=== PATIENT | male | born 1955 | race Caucasian/White ===

== ENCOUNTER → 2018-01-18 08:29 | Outpatient (CLI) | payer OTHER, SELFPAY ==
[2018-01-18 10:33] LABS: Anion Gap 8 (5-15); BUN 17 mg/dL (7-18); BUN/Creat Ratio 15.2 RATIO (10-20); Calcium,Total 8.8 mg/dL (8.5-10.1); Chloride 106 mmol/L (98-107); Cholesterol 205 mg/dL (200); Creatinine, Serum 1.12 mg/dL (0.70-1.30); EST Glomerular Filtration Rate 70 mL/min (>60); Est Glom Filt Rate - Afr Amer 85 mL/min (>60); Glucose 104 mg/dL (74-106); High Density Lipoprotein 63 mg/dL; Sodium Level 140 mmol/L (136-145); Triglycerides 64 mg/dL; Very Low Density Lipoprotein 13 mg/dL (5-40)
== END ==
PROVIDERS: Family Provider Family Medicine; PCP Family Medicine; Visit Provider Family Medicine
DX: Z00.00 Encounter for general adult medical examination without abnormal findings (principal)
CPT/HCPCS: 36415; 80048; 80061

== ENCOUNTER → 2018-01-20 08:08 | Outpatient (CLI) | payer OTHER, SELFPAY ==
[2018-01-20 10:39] LABS: PSA,Total - Annual Screen 1.42 ng/mL (0.00-4.00)
== END ==
PROVIDERS: Family Provider Family Medicine; PCP Family Medicine; Visit Provider Family Medicine
DX: Z00.00 Encounter for general adult medical examination without abnormal findings (principal)
CPT/HCPCS: 36415; 84153; G0103

== ENCOUNTER 2018-08-12 19:09 | Observation (INO) | payer OTHER, SELFPAY ==
[2018-08-12 19:10] VITALS: BP 166/86; PULSE 95; RESP 14; TEMP 36.7; O2SAT 97; BMI 27.6
--- NOTE | 2018-08-12 19:12 | ED.RN ---
NO OLD EKG'S IN MUSE
--- NOTE | 2018-08-12 19:32 | RAD_ITS ---
STUDY: X-RAY CHEST REASON FOR EXAM: Male, 62 years old. Chest pain. TECHNIQUE: Portable chest. COMPARISON: 07/30/2017. FINDINGS: The lungs are clear and expanded. There is no demonstrated pleural abnormality. Normal size heart. Normal mediastinum and colleen. Normal visualized pulmonary arteries. Normal visualized aortic arch and descending thoracic aorta. Normal visualized thoracic spine. Normal visualized ribs, clavicles, and shoulders. There is no demonstrated abnormality of the visualized soft tissue structures of the upper abdomen. RAD/Chest 1 View (Portable) IMPRESSION: Normal x-ray examination of the chest. Electronically Signed: Charlee Ellis MD at 19:49 EDT Tel , Service support ,
--- NOTE | 2018-08-12 19:32 | EKG12_ITS ---
Test Reason : CP Blood Pressure : / mmHG Vent. Rate : 089 BPM Atrial Rate : 089 BPM P-R Int : 166 ms QRS Dur : 098 ms QT Int : 360 ms P-R-T Axes : 053 014 041 degrees QTc Int : 438 ms Normal sinus rhythm Normal ECG Confirmed by CRISELDA JOHNSON, CHANTELLE ([id number]), commissioning editor YOANDY TONEY ([id number]) on 08/16/2018 3:06:35 PM Referred By: NEEL HAJI Confirmed By:CHANTELLE ABURTO MD
[2018-08-12] MEDS: Aspirin 81 MG TAB.CHEW 324 MG PO (19:46)
[2018-08-12 19:50] LABS: Absolute Lymphocyte Count 2.52 X10^3/ul (0.83-4.51); Absolute Neutrophil Count 6.1 X10^3/uL (2.0-7.7); Basophil# 0.02 X10^3/uL; Basophil% 0.2 % (0-1); Eosinophil# 0.13 X10^3/uL; Eosinophils% 1.3 % (0-5); Hematocrit 46.6 % (40-54); Hemoglobin 15.7 g/dl (13.0-16.5); Lymphocyte # 2.52 X10^3/ul (4.0); Mean Corp Hgb Conc 33.7 g/gl (32-36); Mean Corpuscular Hgb 31.2 pg (27.0-32.0); Mean Corpuscular Volume 92.6 fL (80-94); Mean Platelet Vol. 10.5 fl (6.2-12.0); Monocyte# 1.29 X10^3/uL; Monocyte% 12.8 % (0-10); Neutrophil # 6.12 X10^3/uL (2.7-7.7); Neutrophil % 60.6 % (47-70); Platelet Count 203 K/mm3 (150-450); RBC Distribution Width CV 12.7 % (11.6-14.6); RBC Distribution Width SD 42.5 fl (35.1-43.9); Red Blood Count 5.03 M/mm3 (4.6-6.2); White Blood Count 10.1 K/mm3 (4.4-11.0)
[2018-08-12 19:58] LABS: Anion Gap 8 (5-15); BUN 19 mg/dL (7-18); BUN/Creat Ratio 15.1 RATIO (10-20); Calcium,Total 9.2 mg/dL (8.5-10.1); Chloride 106 mmol/L (98-107); Creatinine, Serum 1.26 mg/dL (0.70-1.30); EST Glomerular Filtration Rate 61 mL/min (>60); Est Glom Filt Rate - Afr Amer 74 mL/min (>60); Estimated Creatinine Clearance 63.91 ml/min; Glucose 113 mg/dL (74-106); Potassium 3.5 mmol/L (3.5-5.1); Sodium Level 139 mmol/L (136-145)
[2018-08-12 20:06] LABS: POSITIVE COUNT NO; POSITIVE DIFFERENTIAL NO; POSITIVE MORPHOLOGY NO
[2018-08-12 20:10] VITALS: BP 147/79; PULSE 88; RESP 16; O2SAT 97
[2018-08-12 21:00] VITALS: BP 147/82; PULSE 86; RESP 16; O2SAT 96
--- NOTE | 2018-08-12 21:01 | PCM.HP.STD ---
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 His chest pain started a few hours before his admission. Patient reported that he was standing when his chest pain occurred. He describes chest pain as 4-5 on a scale of 1-10. He describes chest pain as a tightness on his chest. His chest pain started after 20 to 30 minutes of eating. Associated with his symptoms is profuse diaphoresis, lightheadedness and shortness of breath. Patient reported that 5 days ago he had a diarrhea and abdominal upset which has since resolved. He reported that 2 to 3 days ago he had some heartburn which resolved in 10 minutes after he took Tums. Significantly, many years ago he had a stress test because of chest pain. Patient reports that his maternal grandfather had a heart attack. Past Medical History Past Medical History (Chronic Problems): Chronic Problems HTN (hypertension) (Chronic) GERD (gastroesophageal reflux disease) (Chronic) Allergies No Known Allergies Allergy (Verified 08/12/18 19:12) Home Medications: Ambulatory Orders Medication Instructions Recorded Apixaban [Eliquis] 2.5 mg PO BID 08/12/18 Lisinopril [Zestril] 10 mg PO DAILY 08/12/18 Surgical History: no surgical history Psychiatric History: No pertinent psych hx Lives: Spouse/ Significant Other Smoking Status: Current some day smoker - Smokes cigar; rarely. Alcohol: Occasional - *Family History Maternal History Items: Heart Disease Review of Systems Constitutional: Denies: Chills, Fever, Weight Change Eyes: Denies: Blurred vision, Pain HEENT: Denies: Head Aches, Sinus Congestion, Sinus Drainage Cardiovascular: Reports: Chest Pain Respiratory: Reports: Shortness of Breath Gastrointestinal: Denies: Abdominal Pain, Nausea, Vomiting Genitourinary: Denies: Dysuria Musculoskeletal: Denies: Joint Pain, Joint Tenderness Skin: Denies: Rash, Wounds Neurological: Denies: Numbness, Tingling, Focal weakness Psychiatric: Denies: Anxiety, Depression, Homicidal Ideations, Suicidal Ideations Hematologic/ Lymphatic: Denies: Easy Bruising, Easy Bleeding VTE Information - Inpt Only VTE Present on Admission: Yes VTE Mechan Device Prophylaxis: None VTE Pharm Prophylaxis ordered?: No Reason prophylaxis not ordered:: Treatment Not Indicated - On Eliquis Patient Problems: Active and Suspected Problems Chest pain (Acute) - Physical Exam General: Alert, Oriented x3, Cooperative HEENT: Atraumatic, PERRLA, EOMI, Normocephalic Neck: Supple, No JVD, Negative Carotid Bruits Lungs: Clear to auscultation, Normal air movement Cardiovascular: Regular rate, No murmurs Abdomen: Bowel Sounds Present, Soft, Non Tender Extremities: No edema, Capillary Refill Less than 3 Seconds Skin: No rashes, No breakdown Musculoskeletal: No Tenderness to Palpation of Joints or Extremities Neurological: Cranial nerves II-XII grossly intact Psych/Mental Status: Normal Affect, Appropriate Vital Signs Temp Pulse Resp BP Pulse Ox 98.0 F 88 16 147/79 H 97 08/12/18 19:10 08/12/18 20:10 08/12/18 20:10 08/12/18 20:10 08/12/18 20:10 Oxygen Flow Rate (L/min) 2 Oxygen Delivery Method Nasal Cannula Weight: 89.8 kg Body Mass Index (BMI) 27.6 Laboratory Tests Past 24 Hrs 08/12/18 08/12/18 19:15 19:15 WBC 10.1 RBC 5.03 Hgb 15.7 Hct 46.6 MCV 92.6 MCH 31.2 MCHC 33.7 RDW 12.7 RDW Differential 42.5 Plt Count 203 MPV 10.5 Immature Gran % (Auto) 0.100 Neut % (Auto) 60.6 Lymph % (Auto) 25.0 [place] % (Auto) 12.8 H Eos % (Auto) 1.3 Baso % (Auto) 0.2 Absolute Neuts (auto) 6.1 Absolute Lymphs (auto) 2.52 Total Counted Not Reportable Sodium 139 Potassium 3.5 Chloride 106 Carbon Dioxide 25.0 Anion Gap 8 BUN 19 H Creatinine 1.26 Estim Creat Clear Calc 63.91 Est GFR (MDRD) Af Amer 74 Est GFR (MDRD) Non-Af 61 BUN/Creatinine Ratio 15.1 Glucose 113 H Calcium 9.2 Troponin I < 0.015 Assessment/Plan All Active Problems Chest pain (Acute) The patient is a 62 year old M with a significant history of GERD, hypertension, and 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 Chest pain Admit to a monitored bed on PCU CXR independently reviewed was unremarkable. EKG independently reviewed confirms sinus rhythm with no T-wave abnormalities. Patient received aspirin 324 mg at emergency department. ASA 81 mg p.o. daily Lipitor 80 mg ?1. Fasting lipids in a.m. SL NTG 0.4 mg prn as needed for chest pain Morphine and antiemetics as needed Serial cardiac enzymes Stat EKG as needed for chest pain Treadmill stress test with nuclear imaging if the cardiac enzymes are negative Hypertension Blood pressure not within goal at the time of admission Lisinopril continued Hydralazine as needed. Trend BMP. GERD Tums as needed History of DVT Patient reported unprovoked DVT in bilateral legs at different times. He reports that his father also had DVT. He reports that his son has DVT and factor V Leiden deficiency. Eliquis continued. DVT prophylaxis Not indicated Eliquis continued. Code Visit OBSV E&M: 66928 Initial observation care L3
--- NOTE | 2018-08-12 21:05 | ED.VISSUMM ---
- ER Visit Summary Date of Service: 08/12/18 Chief Complaint: Midsternal left chest tightness with diaphoresis and dyspnea. History of Present Illness: The patient is a 62 M who has history of GERD and hypertension [place]. He walked approximately 1/2 mile before experiencing midsternal left sided chest tightness with diaphoresis and dyspnea. Discomfort lasted for approximately 1 hour. He had a stress test many years ago. Maternal grandfather history of coronary disease. He has history of on provoked DVT ?2 and on Eliquis for the past 4 years. He denies any pleuritic chest pain. He states yesterday after walking half mile he got heartburn which was alleviated by antacids. He does have history of GERD. He denies fever, chills night sweats. He denies any ocular, visual or auditory symptoms. He presently is pain-free. He denies dyspnea, dyspnea on exertion or cough. He denies hematemesis, melena hematochezia. He denies dysuria, frequency, urgency hematuria. He denies any leg pain, swelling or discoloration. He has no symptoms of claudication. Physical Examination: Vital signs are marked for an elevated blood pressure 166/86. HEENT exam is unremarkable. Lungs are clear to auscultation with good air bilaterally. Heart is regular without murmur, gallop or rub. Abdomen is soft nontender with a negative Wilkins sign. There is no asymmetry, swelling, discoloration, leg vein distention, palpable cords or tenderness along the distribution of the deep venous system. Neuro exam is nonfocal. Test Results: EKG normal sinus rhythm 89. [place] interval and QRS duration and QT interval and axis normal. Chest x-ray reveals no acute pathology. Cardiac silhouette normal. Mediastinum normal. Osseous structures normal. No effusion. CBC, BMP and troponin are normal. Emergency Department Course and Treatment: Chest pain order set was initiated to evaluate for cardiac versus pulmonary versus GI etiology. He received aspirin in the department. Treatment Plan: PCU 23 observation for serial enzymes and provocative testing Disposition: PCU 23 hour observation Impression: Exertional chest tightness with diaphoresis This note was generated with [employer] dictation software. It may contain incorrect words, spelling, and punctuation that were not noted in review of the chart prior to signing ED Disposition - Plan for ED Patient: Chief Complaint: Chest Pain Referrals: Ramon Jackson MD [Primary Care Provider] -
--- NOTE | 2018-08-12 21:12 | ED.DCSUM_ITS ---
- ER Visit Summary Date of Service: 08/12/18 Chief Complaint: Midsternal left chest tightness with diaphoresis and dyspnea. History of Present Illness: The patient is a 62 M who has history of GERD and hypertension [place] He walked approximately 1/2 mile before experiencing midsternal left sided chest tightness with diaphoresis and dyspnea. Discomfort lasted for approximately 1 hour. He had a stress test many years ago. Maternal grandfather history of coronary disease. He has history of on provoked DVT ?2 and on Eliquis for the past 4 years. He denies any pleuritic chest pain. He states yesterday after walking half mile he got heartburn which was alleviated by antacids. He does have history of GERD. He denies fever, chills night sweats. He denies any ocular, visual or auditory symptoms. He presently is pain-free. He denies dyspnea, dyspnea on exertion or cough. He denies hematemesis, melena hematochezia. He denies dysuria, frequency, urgency hematuria. He denies any leg pain, swelling or discoloration. He has no symptoms of claudication. Physical Examination: Vital signs are marked for an elevated blood pressure 166/ 86. HEENT exam is unremarkable. Lungs are clear to auscultation with good air bilaterally. Heart is regular without murmur, gallop or rub. Abdomen is soft nontender with a negative Wilkins sign. There is no asymmetry, swelling, discoloration, leg vein distention, palpable cords or tenderness along the distribution of the deep venous system. Neuro exam is nonfocal. Test Results: EKG normal sinus rhythm 89. [place] interval and QRS duration and QT interval and axis normal. Chest x-ray reveals no acute pathology. Cardiac silhouette normal. Mediastinum normal. Osseous structures normal. No effusion. CBC, BMP and troponin are normal. Emergency Department Course and Treatment: Chest pain order set was initiated to evaluate for cardiac versus pulmonary versus GI etiology. He received aspirin in the department. Treatment Plan: PCU 23 observation for serial enzymes and provocative testing Disposition: PCU 23 hour observation Impression: Exertional chest tightness with diaphoresis This note was generated with [employer] dictation software. It may contain incorrect words, spelling, and punctuation that were not noted in review of the chart prior to signing ED Disposition - Plan for ED Patient: Chief Complaint: Chest Pain Referrals: Ramon Jackson MD [Primary Care Provider] -
--- NOTE | 2018-08-12 21:51 | NURSING ---
Called ED exchange trouble shooter, Ryan at this time confirm Pt okay to come to PCU.
[2018-08-12 22:16] VITALS: BMI 27.3
--- NOTE | 2018-08-12 22:16 | EKG12_ITS ---
Test Reason : ADMIT Blood Pressure : / mmHG Vent. Rate : 076 BPM Atrial Rate : 076 BPM P-R Int : 170 ms QRS Dur : 108 ms QT Int : 388 ms P-R-T Axes : 057 016 047 degrees QTc Int : 436 ms Normal sinus rhythm Normal ECG No previous ECGs available Confirmed by CRISELDA JOHNSON, CHANTELLE ([id number]), desk editor YOANDY TONEY ([id number]) on 08/16/2018 3:56:02 PM Referred By: PAPI Confirmed By:CHANTELLE ABURTO MD
[2018-08-12 22:25] VITALS: PULSE 78
[2018-08-12 22:59] VITALS: BP 134/76
[2018-08-12 23:00] VITALS: BP 124/69; PULSE 69; RESP 16; TEMP 36.8; O2SAT 98
[2018-08-12] MEDS: Atorvastatin Calcium 80 MG Tablet PO (23:04)
[2018-08-12 23:06] VITALS: BMI 27.3
[2018-08-13 01:40] LABS: Absolute Lymphocyte Count 1.61 X10^3/ul (0.83-4.51); Absolute Neutrophil Count 5.6 X10^3/uL (2.0-7.7); Basophil# 0.03 X10^3/uL; Basophil% 0.3 % (0-1); Eosinophil# 0.13 X10^3/uL; Eosinophils% 1.5 % (0-5); Hematocrit 43.3 % (40-54); Hemoglobin 14.5 g/dl (13.0-16.5); Lymphocyte # 1.61 X10^3/ul (4.0); Lymphocyte % 18.7 % (19-41); Mean Corp Hgb Conc 33.5 g/gl (32-36); Mean Corpuscular Hgb 30.9 pg (27.0-32.0); Mean Corpuscular Volume 92.1 fL (80-94); Mean Platelet Vol. 10.2 fl (6.2-12.0); Monocyte# 1.18 X10^3/uL; Monocyte% 13.7 % (0-10); Neutrophil # 5.64 X10^3/uL (2.7-7.7); Neutrophil % 65.7 % (47-70); Platelet Count 207 K/mm3 (150-450); RBC Distribution Width CV 12.5 % (11.6-14.6); RBC Distribution Width SD 41.5 fl (35.1-43.9); White Blood Count 8.6 K/mm3 (4.4-11.0)
[2018-08-13 01:44] LABS: POSITIVE COUNT NO; POSITIVE DIFFERENTIAL NO; POSITIVE MORPHOLOGY NO
[2018-08-13 01:59] LABS: International Normalized Ratio 1.1; Prothrombin Time (Protime)PT. 14.2 SECONDS (11.7-14.9)
[2018-08-13 02:00] LABS: Partial Thromboplast Time 28.6 Seconds (24.1-36.2)
[2018-08-13 02:34] LABS: Anion Gap 8 (5-15); BUN 17 mg/dL (7-18); BUN/Creat Ratio 15.7 RATIO (10-20); Calcium,Total 8.7 mg/dL (8.5-10.1); Chloride 108 mmol/L (98-107); Cholesterol 166 mg/dL (200); Creatinine, Serum 1.08 mg/dL (0.70-1.30); EST Glomerular Filtration Rate 73 mL/min (>60); Est Glom Filt Rate - Afr Amer 89 mL/min (>60); Estimated Creatinine Clearance 74.56 ml/min; Glucose 106 mg/dL (74-106); High Density Lipoprotein 63 mg/dL; Potassium 3.7 mmol/L (3.5-5.1); Sodium Level 141 mmol/L (136-145); Triglycerides 63 mg/dL; Very Low Density Lipoprotein 13 mg/dL (5-40)
[2018-08-13 03:04] VITALS: PULSE 75
--- NOTE | 2018-08-13 04:00 | EKG12_ITS ---
Test Reason : AM Blood Pressure : / mmHG Vent. Rate : 079 BPM Atrial Rate : 079 BPM P-R Int : 174 ms QRS Dur : 100 ms QT Int : 396 ms P-R-T Axes : 044 -02 032 degrees QTc Int : 454 ms Normal sinus rhythm Normal ECG When compared with ECG of 12-AUG-2018 22:14, MANUAL COMPARISON REQUIRED, DATA IS UNCONFIRMED Confirmed by CRISELDA JOHNSON, CHANTELLE ([id number]), senior editor YOANDY TONEY ([id number]) on 08/16/2018 3:55:26 PM Referred By: HOSP Confirmed By:CHANTELLE ABURTO MD
[2018-08-13 05:00] VITALS: BP 146/84; PULSE 89; RESP 20; TEMP 36.8; O2SAT 96
--- NOTE | 2018-08-13 05:34 | NURSING ---
Pt. refusing injection for stress test at this time. Pt. wants to make sure his insurance will cover stress test and wonders if he needs precertification for test. This nurse will try to contact his insurance company to get information.
[2018-08-13 07:07] VITALS: PULSE 80
[2018-08-13 08:16] VITALS: O2SAT 96
[2018-08-13 08:28] VITALS: BP 150/80; PULSE 95; RESP 18; TEMP 36.8; O2SAT 95
[2018-08-13] MEDS: Aspirin E.C. 81 MG Tablet PO (08:31)
[2018-08-13] MEDS: Lisinopril 10 MG Tablet PO (08:31)
[2018-08-13] MEDS: 0.9% NaCl Peripheral Flush Adult/Peds IV (08:33)
[2018-08-13 08:38] VITALS: RESP 18
--- NOTE | 2018-08-13 11:23 | CASEMGMT ---
According to [facility] website, the following are in-network tertiary facilities: [facility], [facility], [facility], [facility], [facility], [facility], and . Kameron LEVY CM
--- NOTE | 2018-08-13 11:43 | STRESSREP ---
Stress Test Report Exercise myocardial perfusion stress test. 62-year-old male with a history of chest pain. Stress protocol: Resting EKG demonstrates normal sinus rhythm with a rate of 84 bpm normal intervals and noted resting blood pressure is 148/88 mmHg. Patient exercised according to regular Bryan protocol for total duration of 9 minutes completing stage III of the Bryan protocol the maximum heart rate attained was 160 bpm which is 101% maximum predicted heart rate maximum workload was 10.1 metabolic equivalents. At rest there were no ST or T-wave changes noticed ischemia peak exercise upsloping ST changes only were noted with no meet the criteria for ischemia. No clinical angina was noted. The resting blood pressure is 148/88 with a peak blood pressure of 200/80 mmHg rate pressure product of 32,000. Myocardial perfusion protocol. 11.5 mCi of technetium 99m sestamibi was injected at rest. The patient exercised according to regular Bryan protocol for 9 minutes attaining 101% maximum predicted heart rate at peak exercise 33.2 mCi of technetium 99m sestamibi was injected stress images were obtained stress and rest images were reconstructed and compared in the short axis vertical long horizontal long axis. Gated images were also obtained Perfusion SPECT analysis: Review of the stress images demonstrate normal uptake of tracer noted in all areas of the myocardium. The resting images similarly demonstrate normal uptake of tracer noted in all areas of myocardium. No areas of reversibility are noted suggest ischemia no previous infarct is noted. Gated SPECT analysis: The gated ejection fraction 69%. Conclusion: Exercise myocardial perfusion stress test with no evidence of ischemia noted at a high workload. No clinical angina noted. Preserved ejection fraction.
--- NOTE | 2018-08-13 11:50 | PCM.DC ---
- Discharge Diagnoses Current Active Problems: Current Active and Chronic Problems HTN (hypertension) (Chronic) GERD (gastroesophageal reflux disease) (Chronic) Chest pain (Acute) You will use the following diet at home:: Cardiac Discharge Activity: Return to Normal Activity Call your doctor if you observe: Shortness of breath, Dizziness, Fainting spells, Chest pain Allergies/Adverse Reactions: Allergies No Known Allergies Allergy (Verified 08/12/18 19:12) Medications to take at Discharge Apixaban [Eliquis] 2.5 mg PO BID 08/12/18 Lisinopril [Zestril] 10 mg PO DAILY 08/12/18 Primary Care Physician: Ramon Jackson MD [Primary Care Provider] - Please follow up with your Primary Care Physician in: 1 Week Test Results: Test results from this visit will be discussed in further detail at your follow-up appointment, if applicable. Proposed Discharge Date: 08/13/18
--- NOTE | 2018-08-13 11:54 | DCINST_ITS ---
- Discharge Diagnoses Current Active Problems: Current Active and Chronic Problems HTN (hypertension) (Chronic) GERD (gastroesophageal reflux disease) (Chronic) Chest pain (Acute) You will use the following diet at home:: Cardiac Discharge Activity: Return to Normal Activity Call your doctor if you observe: Shortness of breath, Dizziness, Fainting spells , Chest pain Allergies/Adverse Reactions: Allergies No Known Allergies Allergy (Verified 08/12/18 19:12) Medications to take at Discharge Apixaban [Eliquis] 2.5 mg PO BID 08/12/18 Lisinopril [Zestril] 10 mg PO DAILY 08/12/18 Primary Care Physician: Ramon Jackson MD [Primary Care Provider] - Please follow up with your Primary Care Physician in: 1 Week Test Results: Test results from this visit will be discussed in further detail at your follow- up appointment, if applicable. Proposed Discharge Date: 08/13/18
--- NOTE | 2018-08-13 11:54 | PCM.DC.SUM ---
<Lilly Teresa - Last Filed: 08/13/18 11:59> Discharge Date and Diagnosis Date of Admission: 08/12/18 Date of Discharge: 08/13/18 - Primary Discharge Diagnosis Active and Suspected Problems 1. Noncardiac chest pain - Secondary Discharge Diagnosis Chronic Problems HTN (hypertension) (Chronic) GERD (gastroesophageal reflux disease) (Chronic) DVT Hospital Course and Treatment Imaging Results: Diagnostic Data Chest X-Ray 08/12/18 19:32 IMPRESSION: Normal x-ray examination of the chest. Electronically Signed: Charlee Ellis MD at 19:49 EDT Tel , Service support , Operations: None Procedures: Stress test Summary of Care Provided: The patient is a 62 year old M admitted 08/12/2018 due to chest pain. He has a past medical history of unprovoked DVT on chronic anticoagulation with Eliquis (family history of factor V deficiency), hypertension, GERD. EKG without ST T changes. Troponin negative ?3. Patient underwent nuclear stress test which was negative for ischemia. ACS ruled out. Patient denies further chest pain during admission. Recommend addition of PPI as outpatient if patient has recurrent symptoms. Patient's blood pressure mildly elevated during admission, 140-150 systolically. Recommend continued monitoring as outpatient with adjustment of lisinopril if necessary. General: Alert, Oriented x3, Cooperative HEENT: Atraumatic, PERRLA, EOMI, Normocephalic Neck: Supple, No JVD, Negative Carotid Bruits Lungs: Clear to auscultation, Normal air movement Cardiovascular: Regular rate, No murmurs Abdomen: Bowel Sounds Present, Soft, Non Tender Extremities: No edema, Capillary Refill Less than 3 Seconds Skin: No rashes, No breakdown Musculoskeletal: No Tenderness to Palpation of Joints or Extremities Neurological: Cranial nerves II-XII grossly intact Psych/Mental Status: Normal Affect, Appropriate Patient seen exam prior to discharge. Physical assessment as noted above. Patient stable for discharge home with follow-up with primary care physician in 1 week. This patient was seen by CHRISTOPHER Hathaway under the supervision of Dr. Noel. Discharge Diet: Low fat/ Low Cholesterol Discharge Activity: Return to Normal Activity Call your doctor if you observe: Shortness of breath, Dizziness, Fainting spells, Chest pain Home Medications: Medications to take at Discharge Apixaban [Eliquis] 2.5 mg PO BID 08/12/18 Lisinopril [Zestril] 10 mg PO DAILY 08/12/18 Primary Care Physician: Ramon Jackson MD [Primary Care Provider] - Please follow up with your Primary Care Physician in: 1 Week Disposition: Home Minutes spent on discharge:: 35 Patient Condition:: Stable Medical Necessity - Tobacco Use Smoking Status: Current some day smoker - Smokes cigar; rarely. Meaningful Use Info Meaningful Use Diagnoses (Choose all that apply): None applicable <Katherine Noel - Last Filed: 08/14/18 11:18> Discharge Date and Diagnosis - Secondary Discharge Diagnosis Chronic Problems HTN (hypertension) (Chronic) GERD (gastroesophageal reflux disease) (Chronic) Hospital Course and Treatment Summary of Care Provided: Patient evaluated independently of BANQUET ATTENDANT and case discussed as well COPD exacerbation better and patient stab;le for discharge Agree with findings and plan and recommendations
--- NOTE | 2018-08-13 11:59 | DS.PCM_ITS ---
<Lilly Teresa - Last Filed: 08/13/18 11:59> Discharge Date and Diagnosis Date of Admission: 08/12/18 Date of Discharge: 08/13/18 - Primary Discharge Diagnosis Active and Suspected Problems 1. Noncardiac chest pain - Secondary Discharge Diagnosis Chronic Problems HTN (hypertension) (Chronic) GERD (gastroesophageal reflux disease) (Chronic) DVT Hospital Course and Treatment Imaging Results: Diagnostic Data Chest X-Ray 08/12/18 19:32 IMPRESSION: Normal x-ray examination of the chest. Electronically Signed: Charlee Ellis MD at 19:49 EDT Tel , Service support , Operations: None Procedures: Stress test Summary of Care Provided: The patient is a 62 year old M admitted 08/12/2018 due to chest pain. He has a past medical history of unprovoked DVT on chronic anticoagulation with Eliquis ( family history of factor V deficiency), hypertension, GERD. EKG without ST T changes. Troponin negative ?3. Patient underwent nuclear stress test which was negative for ischemia. ACS ruled out. Patient denies further chest pain during admission. Recommend addition of PPI as outpatient if patient has recurrent symptoms. Patient's blood pressure mildly elevated during admission, 140-150 systolically. Recommend continued monitoring as outpatient with adjustment of lisinopril if necessary. General: Alert, Oriented x3, Cooperative HEENT: Atraumatic, PERRLA, EOMI, Normocephalic Neck: Supple, No JVD, Negative Carotid Bruits Lungs: Clear to auscultation, Normal air movement Cardiovascular: Regular rate, No murmurs Abdomen: Bowel Sounds Present, Soft, Non Tender Extremities: No edema, Capillary Refill Less than 3 Seconds Skin: No rashes, No breakdown Musculoskeletal: No Tenderness to Palpation of Joints or Extremities Neurological: Cranial nerves II-XII grossly intact Psych/Mental Status: Normal Affect, Appropriate Patient seen exam prior to discharge. Physical assessment as noted above. Patient stable for discharge home with follow-up with primary care physician in 1 week. This patient was seen by CHRISTOPHER Hathaway under the supervision of Dr. Noel. Discharge Diet: Low fat/ Low Cholesterol Discharge Activity: Return to Normal Activity Call your doctor if you observe: Shortness of breath, Dizziness, Fainting spells , Chest pain Home Medications: Medications to take at Discharge Apixaban [Eliquis] 2.5 mg PO BID 08/12/18 Lisinopril [Zestril] 10 mg PO DAILY 08/12/18 Primary Care Physician: Ramon Jackson MD [Primary Care Provider] - Please follow up with your Primary Care Physician in: 1 Week Disposition: Home Minutes spent on discharge:: 35 Patient Condition:: Stable Medical Necessity - Tobacco Use Smoking Status: Current some day smoker - Smokes cigar; rarely. Meaningful Use Info Meaningful Use Diagnoses (Choose all that apply): None applicable <Katherine Noel - Last Filed: 08/14/18 11:18> Discharge Date and Diagnosis - Secondary Discharge Diagnosis Chronic Problems HTN (hypertension) (Chronic) GERD (gastroesophageal reflux disease) (Chronic) Hospital Course and Treatment Summary of Care Provided: Patient evaluated independently of TECHNICAL RESEARCH SCIENTIST and case discussed as well COPD exacerbation better and patient stab;le for discharge Agree with findings and plan and recommendations
== END 2018-08-13 11:53 | disposition home or self-care (01) ==
LOC: ED 19:44 → PCU 21:48
PROVIDERS: Admitting Provider Hospitalist; Emergency Provider Emergency Medicine; Family Provider Family Medicine; PCP Family Medicine; Visit Provider Internal Medicine
DX: R07.89 Other chest pain (principal); I10 Essential (primary) hypertension; K21.9 Gastro-esophageal reflux disease without esophagitis; Z86.718 Personal history of other venous thrombosis and embolism; Z79.01 Long term (current) use of anticoagulants; F17.290 Nicotine dependence, other tobacco product, uncomplicated; Z79.899 Other long term (current) drug therapy
CPT/HCPCS: 36415; 71045; 78452; 80048; 80061; 84484; 85025; 85610; 85730; 93005; 93017; 99218; 99283; A9500; A4216; G0378

== ENCOUNTER → 2019-02-22 11:11 | Outpatient (CLI) | payer OTHER, SELFPAY ==
[2019-02-22 13:25] LABS: Glucose 96 mg/dL (74-106); PSA,Total - Annual Screen 1.83 ng/mL (0.00-4.00)
== END ==
PROVIDERS: Family Provider Family Medicine; PCP Family Medicine; Referring Provider Family Medicine; Visit Provider Family Medicine
DX: I10 Essential (primary) hypertension (principal); Z12.5 Encounter for screening for malignant neoplasm of prostate
CPT/HCPCS: 36415; 82947; 84153; G0103

== ENCOUNTER → 2020-01-10 10:30 | Outpatient (CLI) | payer MEDICARE, OTHER, SELFPAY ==
[2020-01-10 11:40] LABS: Red Blood Cells-Urine 0 SEEN /hpf (0-5); Squamous Epithelial Cells - UA 0 SEEN /hpf (0-5); White Blood Cells 0 SEEN /hpf (0-5)
[2020-01-10 12:53] LABS: Color, Urine Yellow (Yellow); Glucose, Dipstick Normal (Normal); Ketone-Dipstick 5 mg/dl (Negative); Leukocyte Esterase-Dipstick Negative /ul (Negative); Nitrite-Dipstick Negative (Negative); Occult Blood-Urine Negative /ul (Negative); Protein-Dipstick Negative (Negative); Specific Gravity, Urine 1.015 (1.002-1.030); Urine Bilirubin Dipstick Negative (Negative); Urine Clarity Clear (Clear); Urine Urobilinogen Normal (Normal)
[2020-01-10 13:05] LABS: Bacteria RARE /hpf (None Seen); Mucous, Urine RARE /hpf (<or=2+)
[2020-01-10 13:06] LABS: Absolute Lymphocyte Count 1.44 X10^3/uL (0.83-4.51); Basophil# 0.04 X10^3/uL; Basophil% 0.7 % (0-1); Eosinophil# 0.05 X10^3/uL; Eosinophils% 0.8 % (0-5); Hematocrit 46.1 % (40-54); Hemoglobin 15.1 g/dL (13.0-16.5); Lymphocyte # 1.44 X10^3/ul (4.0); Lymphocyte % 23.6 % (19-41); Mean Corp Hgb Conc 32.8 g/dL (32-36); Mean Corpuscular Hgb 31.1 pg (27.0-32.0); Mean Corpuscular Volume 94.9 fL (80-94); Monocyte# 0.52 X10^3/uL; Monocyte% 8.5 % (0-10); NRBC Flagged by Analyzer 0 % (0-5); Neutrophil # 4.04 X10^3/uL (2.7-7.7); Neutrophil % 66.1 % (47-70); Platelet Count 208 K/mm3 (150-450); RBC Distribution Width CV 12.1 % (11.6-14.6); RBC Distribution Width SD 42.5 fl (35.1-43.9); Red Blood Count 4.86 M/mm3 (4.6-6.2); White Blood Count 6.1 K/mm3 (4.4-11.0)
[2020-01-10 13:55] LABS: ALB/GLOB Ratio 1.1 RATIO (0.9-2.4); AST(SGOT) 27 U/L (15-37); Alanine Aminotransfer ALT/SGPT 52 U/L (16-61); Albumin, Serum 3.7 g/dL (3.2-5.0); Alkaline Phosphatase 60 U/L (45-117); Anion Gap 6 (5-15); BUN 16 mg/dL (7-18); BUN/Creat Ratio 13.7 RATIO (10-20); Calcium,Total 9.4 mg/dL (8.5-10.1); Chloride 109 mmol/L (98-107); Cholesterol 227 mg/dL (200); Creatinine, Serum 1.17 mg/dL (0.70-1.30); EST Glomerular Filtration Rate 67 mL/min (>60); Est Glom Filt Rate - Afr Amer 80 mL/min (>60); Globulin 3.3 g/dL (2.2-4.2); Glucose 107 mg/dL (74-106); High Density Lipoprotein 69 mg/dL; Sodium Level 141 mmol/L (136-145); Thyroid Stim Hormone (TSH) 1.19 uIU/mL (0.358-3.74); Triglycerides 60 mg/dL; Very Low Density Lipoprotein 12 mg/dL (5-40)
[2020-01-11 09:34] LABS: Hemoglobin A1c 5.9 % (4.2-6.3)
== END ==
PROVIDERS: PCP Family Medicine; Visit Provider Family Medicine
DX: I10 Essential (primary) hypertension (principal); E78.00 Pure hypercholesterolemia, unspecified; R73.09 Other abnormal glucose
CPT/HCPCS: 36415; 80053; 80061; 81001; 83036; 84443; 85025

== ENCOUNTER → 2020-03-07 09:46 | Outpatient (CLI) | payer MEDICARE, OTHER, SELFPAY ==
[2020-03-07 12:19] LABS: PSA,Total - Annual Screen 2.34 ng/mL (0.00-4.00)
== END ==
PROVIDERS: PCP Family Medicine; Referring Provider Family Medicine; Visit Provider Family Medicine
DX: Z12.5 Encounter for screening for malignant neoplasm of prostate (principal)
CPT/HCPCS: 36415; 84153; G0103

== ENCOUNTER → 2020-06-15 07:06 | Outpatient (CLI) | payer MEDICARE, OTHER, SELFPAY ==
[2020-06-15 09:43] LABS: Absolute Lymphocyte Count 2.66 X10^3/uL (0.83-4.51); Absolute Neutrophil Count 3.4 X10^3/uL (2.0-7.7); Basophil# 0.04 X10^3/uL; Basophil% 0.6 % (0-1); Eosinophil# 0.16 X10^3/uL; Eosinophils% 2.3 % (0-5); Hematocrit 45.1 % (40-54); Hemoglobin 14.7 g/dL (13.0-16.5); Lymphocyte # 2.66 X10^3/ul (4.0); Lymphocyte % 38.3 % (19-41); Mean Corp Hgb Conc 32.6 g/dL (32-36); Mean Corpuscular Hgb 31.6 pg (27.0-32.0); Mean Platelet Vol. 11.2 fl (6.2-12.0); Monocyte# 0.68 X10^3/uL; Monocyte% 9.8 % (0-10); NRBC Flagged by Analyzer 0 % (0-5); Neutrophil # 3.38 X10^3/uL (2.7-7.7); Neutrophil % 48.7 % (47-70); Platelet Count 210 K/mm3 (150-450); RBC Distribution Width CV 12.7 % (11.6-14.6); RBC Distribution Width SD 45.4 fl (35.1-43.9); Red Blood Count 4.65 M/mm3 (4.6-6.2); White Blood Count 6.9 K/mm3 (4.4-11.0)
[2020-06-15 10:12] LABS: ALB/GLOB Ratio 1.2 RATIO (0.9-2.4); AST(SGOT) 12 U/L (15-37); Alanine Aminotransfer ALT/SGPT 33 U/L (16-61); Albumin, Serum 3.6 g/dL (3.2-5.0); Alkaline Phosphatase 53 U/L (45-117); Anion Gap 4 (5-15); BUN 13 mg/dL (7-18); BUN/Creat Ratio 12.9 RATIO (10-20); Calcium,Total 8.5 mg/dL (8.5-10.1); Chloride 107 mmol/L (98-107); Cholesterol 186 mg/dL (200); Creatinine, Serum 1.01 mg/dL (0.70-1.30); EST Glomerular Filtration Rate 79 mL/min (>60); Est Glom Filt Rate - Afr Amer 95 mL/min (>60); Glucose 92 mg/dL (74-106); High Density Lipoprotein 72 mg/dL; Potassium 3.8 mmol/L (3.5-5.1); Protein, Total 6.6 g/dL (6.4-8.2); Sodium Level 138 mmol/L (136-145); Triglycerides 73 mg/dL; Very Low Density Lipoprotein 15 mg/dL (5-40)
[2020-06-15 10:43] LABS: Hemoglobin A1c 5.5 % (3.8-5.6)
== END ==
PROVIDERS: PCP Family Medicine; Referring Provider Family Medicine; Visit Provider Family Medicine
DX: I10 Essential (primary) hypertension (principal); R73.09 Other abnormal glucose; E78.00 Pure hypercholesterolemia, unspecified
CPT/HCPCS: 36415; 80053; 80061; 83036; 85025

== ENCOUNTER → 2021-03-05 08:17 | Outpatient (CLI) | payer MEDICARE, OTHER, SELFPAY ==
[2021-03-05 10:34] LABS: ALB/GLOB Ratio 1.1 RATIO (0.9-2.4); AST(SGOT) 21 U/L (15-37); Alanine Aminotransfer ALT/SGPT 47 U/L (16-61); Albumin, Serum 3.7 g/dL (3.2-5.0); Alkaline Phosphatase 58 U/L (45-117); Anion Gap 2 (5-15); BUN 19 mg/dL (7-18); BUN/Creat Ratio 15.8 RATIO (10-20); Calcium,Total 9.2 mg/dL (8.5-10.1); Chloride 106 mmol/L (98-107); Cholesterol 234 mg/dL (200); EST Glomerular Filtration Rate 64 mL/min (>60); Est Glom Filt Rate - Afr Amer 78 mL/min (>60); Globulin 3.4 g/dL (2.2-4.2); Glucose 106 mg/dL (74-106); High Density Lipoprotein 85 mg/dL; Protein, Total 7.1 g/dL (6.4-8.2); Sodium Level 140 mmol/L (136-145); Triglycerides 55 mg/dL; Very Low Density Lipoprotein 11 mg/dL (5-40)
[2021-03-05 10:42] LABS: Hemoglobin A1c 5.6 % (3.8-5.6)
== END ==
PROVIDERS: PCP Family Medicine; Visit Provider Family Medicine
DX: R73.02 Impaired glucose tolerance (oral) (principal); E78.00 Pure hypercholesterolemia, unspecified
CPT/HCPCS: 36415; 80053; 80061; 83036

== ENCOUNTER → 2021-03-15 10:04 | Outpatient (CLI) | payer MEDICARE, OTHER, SELFPAY ==
[2021-03-15 12:46] LABS: PSA,Total - Annual Screen 1.74 ng/mL (0.00-4.00)
== END ==
PROVIDERS: PCP Family Medicine; Referring Provider Family Medicine; Visit Provider Family Medicine
DX: Z12.5 Encounter for screening for malignant neoplasm of prostate (principal)
CPT/HCPCS: 36415; 84153; G0103

== ENCOUNTER → 2021-07-18 08:22 | Outpatient (CLI) | payer MEDICARE, OTHER, SELFPAY ==
[2021-07-18 08:26] LABS: Bacteria 0 SEEN /hpf (None Seen); Red Blood Cells-Urine 0 SEEN /hpf (0-5); Squamous Epithelial Cells - UA 0 SEEN /hpf (0-5); White Blood Cells 0 SEEN /hpf (0-5)
[2021-07-18 10:27] LABS: Absolute Lymphocyte Count 1.77 X10^3/uL (0.83-4.51); Absolute Neutrophil Count 5.3 X10^3/uL (2.0-7.7); Basophil# 0.09 X10^3/uL; Eosinophils% 9.2 % (0-5); Hematocrit 43.1 % (40-54); Hemoglobin 14.5 g/dL (13.0-16.5); Lymphocyte # 1.77 X10^3/ul (0.83-4.51); Lymphocyte % 20.4 % (19-41); Mean Corp Hgb Conc 33.6 g/dL (32-36); Mean Corpuscular Hgb 31.7 pg (27.0-32.0); Mean Corpuscular Volume 94.3 fL (80-94); Mean Platelet Vol. 11.6 fl (6.2-12.0); Monocyte% 8.1 % (0-10); NRBC Flagged by Analyzer 0 % (0-5); Neutrophil # 5.29 X10^3/uL (2.7-7.7); Platelet Count 192 K/mm3 (150-450); RBC Distribution Width CV 12.7 % (11.6-14.6); RBC Distribution Width SD 43.8 fl (35.1-43.9); Red Blood Count 4.57 M/mm3 (4.6-6.2); White Blood Count 8.7 K/mm3 (4.4-11.0)
[2021-07-18 10:34] LABS: Color, Urine Yellow (Yellow); Glucose, Dipstick Normal (Normal); Ketone-Dipstick Negative (Negative); Leukocyte Esterase-Dipstick Negative /ul (Negative); Nitrite-Dipstick Negative (Negative); Occult Blood-Urine Negative /ul (Negative); Protein-Dipstick Negative (Negative); Specific Gravity, Urine 1.025 (1.002-1.030); Urine Bilirubin Dipstick Negative (Negative); Urine Clarity Clear (Clear); Urine Urobilinogen Normal (Normal)
[2021-07-18 10:41] LABS: Mucous, Urine 2+ /hpf (<or=2+)
[2021-07-18 11:22] LABS: ALB/GLOB Ratio 1.1 RATIO (0.9-2.4); AST(SGOT) 27 U/L (15-37); Alanine Aminotransfer ALT/SGPT 51 U/L (16-61); Albumin, Serum 3.5 g/dL (3.2-5.0); Alkaline Phosphatase 54 U/L (45-117); Anion Gap 3 (5-15); BUN 16 mg/dL (7-18); BUN/Creat Ratio 15.8 RATIO (10-20); Calcium,Total 8.6 mg/dL (8.5-10.1); Chloride 111 mmol/L (98-107); Cholesterol 200 mg/dL (200); Creatinine, Serum 1.01 mg/dL (0.70-1.30); EST Glomerular Filtration Rate 78 mL/min (>60); Est Glom Filt Rate - Afr Amer 95 mL/min (>60); Globulin 3.2 g/dL (2.2-4.2); Glucose 100 mg/dL (74-106); High Density Lipoprotein 68 mg/dL; Protein, Total 6.7 g/dL (6.4-8.2); Sodium Level 142 mmol/L (136-145); Triglycerides 59 mg/dL; Very Low Density Lipoprotein 12 mg/dL (5-40)
[2021-07-18 11:26] LABS: Hemoglobin A1c 5.7 % (3.8-5.6)
== END ==
PROVIDERS: PCP Family Medicine; Referring Provider Family Medicine; Visit Provider Family Medicine
DX: I10 Essential (primary) hypertension (principal); E78.00 Pure hypercholesterolemia, unspecified; R73.02 Impaired glucose tolerance (oral)
CPT/HCPCS: 36415; 80053; 80061; 81001; 83036; 85025

== ENCOUNTER 2022-03-03 08:19 | Outpatient (CLI) | payer MEDICARE, OTHER, SELFPAY ==
[2022-03-03 08:22] LABS: Bacteria 0 SEEN /hpf (None Seen); Mucous, Urine 0 SEEN /hpf (<or=2+); Red Blood Cells-Urine 0 SEEN /hpf (0-5); White Blood Cells 0 SEEN /hpf (0-5)
[2022-03-03 10:46] LABS: Absolute Lymphocyte Count 1.78 X10^3/uL (0.83-4.51); Absolute Neutrophil Count 3.4 X10^3/uL (2.0-7.7); Basophil# 0.06 X10^3/uL; Eosinophil# 0.37 X10^3/uL; Hematocrit 44.8 % (40-54); Hemoglobin 14.6 g/dL (13.0-16.5); Lymphocyte # 1.78 X10^3/ul (0.83-4.51); Lymphocyte % 28.7 % (19-41); Mean Corp Hgb Conc 32.6 g/dL (32-36); Mean Corpuscular Hgb 31.5 pg (27.0-32.0); Mean Corpuscular Volume 96.6 fL (80-94); Mean Platelet Vol. 11.2 fl (6.2-12.0); Monocyte# 0.58 X10^3/uL; Monocyte% 9.4 % (0-10); NRBC Flagged by Analyzer 0 % (0-5); Neutrophil # 3.39 X10^3/uL (2.7-7.7); Neutrophil % 54.6 % (47-70); Platelet Count 203 K/mm3 (150-450); RBC Distribution Width CV 12.4 % (11.6-14.6); RBC Distribution Width SD 44.2 fl (35.1-43.9); Red Blood Count 4.64 M/mm3 (4.6-6.2); White Blood Count 6.2 K/mm3 (4.4-11.0)
[2022-03-03 10:47] LABS: Color, Urine Yellow (Yellow); Glucose, Dipstick Normal (Normal); Ketone-Dipstick Negative (Negative); Leukocyte Esterase-Dipstick Negative /ul (Negative); Nitrite-Dipstick Negative (Negative); Occult Blood-Urine Negative /ul (Negative); Protein-Dipstick Negative (Negative); Urine Bilirubin Dipstick Negative (Negative); Urine Clarity Clear (Clear); Urine Urobilinogen Normal (Normal); Urine pH 6.5 (5.0 - 8.0)
[2022-03-03 10:54] LABS: Squamous Epithelial Cells - UA 0-5 SEEN /hpf (0-5)
[2022-03-03 11:07] LABS: AST(SGOT) 27 U/L (15-37); Alanine Aminotransfer ALT/SGPT 50 U/L (16-61); Albumin, Serum 3.4 g/dL (3.2-5.0); Alkaline Phosphatase 63 U/L (45-117); Anion Gap 5 (5-15); BUN 18 mg/dL (7-18); BUN/Creat Ratio 16.1 RATIO (10-20); Calcium,Total 8.6 mg/dL (8.5-10.1); Chloride 108 mmol/L (98-107); Cholesterol 204 mg/dL (200); Creatinine, Serum 1.12 mg/dL (0.70-1.30); EST Glomerular Filtration Rate 69 mL/min (>60); Est Glom Filt Rate - Afr Amer 84 mL/min (>60); Globulin 3.3 g/dL (2.2-4.2); Glucose 107 mg/dL (74-106); High Density Lipoprotein 72 mg/dL; Potassium 4.2 mmol/L (3.5-5.1); Protein, Total 6.7 g/dL (6.4-8.2); Sodium Level 140 mmol/L (136-145); Thyroid Stim Hormone (TSH) 1.59 uIU/mL (0.358-3.74); Triglycerides 76 mg/dL; Very Low Density Lipoprotein 15 mg/dL (5-40)
[2022-03-03 11:10] LABS: Hemoglobin A1c 5.5 % (3.8-5.6)
== END 2022-03-03 23:59 | disposition home or self-care (01) ==
PROVIDERS: PCP Family Medicine; Visit Provider Family Medicine
DX: R73.02 Impaired glucose tolerance (oral) (principal); E78.00 Pure hypercholesterolemia, unspecified
CPT/HCPCS: 80053; 80061; 81001; 83036; 84443; 85025

== ENCOUNTER → 2022-04-21 | Outpatient (CLI) | payer MEDICARE, OTHER, SELFPAY ==
[2022-04-21 15:41] LABS: Hemoglobin A1c 5.6 % (3.8-5.6)
[2022-04-21 15:43] LABS: PSA,Total - Annual Screen 3.68 ng/mL (0.00-4.00)
== END | disposition home or self-care (01) ==
LOC: MFPLAB 14:37
PROVIDERS: PCP Family Medicine; Visit Provider Family Medicine
DX: R73.02 Impaired glucose tolerance (oral) (principal); Z12.5 Encounter for screening for malignant neoplasm of prostate
CPT/HCPCS: 36415; 83036; 84153; G0103

== ENCOUNTER → 2022-06-26 | Outpatient (CLI) | payer MEDICARE, OTHER, SELFPAY ==
--- NOTE | 2022-06-26 08:00 | PROSBIL_PTH ---
PATIENT: ALF SANCHEZ LOC: [facility] U#:[id number] AGE/SX: 66/M ROOM: RE06/26/[address]: Dr. Sridhar Hernandez MD : 1955 BED: DIS: 06/26/2022 SPEC #: [id number] RECD: 06/26/22 15:48 STATUS: SHERRI ASH #: [id number] DAPHNIE: 06/26/22 08:[address]: Sridhar Hernandez DEPT: SURGICAL PATHOLOGY RECD BY: Pablo Garcia ENTERED: 06/27/22 07:02 SP TYPE: PROST BX LADAN DR: Dr. Ramon Kennedy MD Tissues: A - PROSTATE RIGHT B - PROSTATE RIGHT C - PROSTATE RIGHT D - PROSTATE LEFT E - PROSTATE LEFT F - PROSTATE LEFT Procedures: PROSTATE BX HEADER OPERATION: Prostate biopsies PRE-OP DIAGNOSIS: Elevated PSA R97.20 TISSUE SUBMITTED: A - Right apex, B - Right mid, C - Right base, D - Left apex, E - Left mid, F - Left base MICROSCOPIC DIAGNOSIS A. Right prostate, apex, core biopsy: Prostatic tissue, negative for malignancy. B. Right prostate, mid, core biopsy: Prostatic tissue, negative for malignancy. C. Right prostate, base, core biopsy: Prostatic tissue, negative for malignancy. Focal mild chronic inflammation. D. Left prostate, apex, core biopsy: Prostatic tissue, negative for malignancy. E. Left prostate, mid, core biopsy: Prostatic tissue, negative for malignancy. F. Left prostate, base, core biopsy: Prostatic tissue, negative for malignancy. SJ:mert 06/30/2022 MICROSCOPIC DESCRIPTION Slides are reviewed. GROSS DESCRIPTION A - Received is one container designated prostate, right apex. The specimen consists of two elongated fragments of light neely-white soft tissue each measuring 1 cm in length and 0.1 cm in diameter. The specimen is totally submitted in one cassette. B - Received is one container designated prostate, right mid. The specimen consists of two elongated fragments of light neely-white soft tissue each measuring 1 cm in length and 0.1 cm in diameter. The specimen is totally submitted in one cassette. C - Received is one container designated prostate, right base. The specimen consists of two elongated fragments of light neely-white soft tissue each measuring 1.2 cm in length and 0.1 cm in diameter. The specimen is totally submitted in one cassette. D - Received is one container designated prostate, left apex. The specimen consists of two elongated fragments of light neely-white soft tissue each measuring 1.2 cm in length and 0.1 cm in diameter. The specimen is totally submitted in one cassette. E - Received is one container designated prostate, left mid. The specimen consists of two elongated fragments of light neely-white soft tissue each measuring 1 cm in length and 0.1 cm in diameter. The specimen is totally submitted in one cassette. F - Received is one container designated prostate, left base. The specimen consists of two elongated fragments of light neely-white soft tissue each measuring 1.5 cm in length and 0.1 cm in diameter. The specimen is totally submitted in one cassette. / SJ:rg 06/27/2022 TC:3 CPT: G0146
== END | disposition home or self-care (01) ==
LOC: LABSPEC 15:53
PROVIDERS: PCP Family Medicine; Referring Provider Urology; Visit Provider Urology
DX: R97.20 Elevated prostate specific antigen [PSA] (principal)
CPT/HCPCS: 88305; G0416

== ENCOUNTER → 2022-10-14 | Outpatient (CLI) | payer MEDICARE, OTHER, SELFPAY ==
[2022-10-14 08:33] LABS: Bacteria 0 SEEN /hpf (None Seen); Mucous, Urine 0 SEEN /hpf (<or=2+); Red Blood Cells-Urine 0 SEEN /hpf (0-5); Squamous Epithelial Cells - UA 0 SEEN /hpf (0-5); White Blood Cells 0 SEEN /hpf (0-5)
[2022-10-14 09:52] LABS: Absolute Lymphocyte Count 2.07 X10^3/uL (0.83-4.51); Absolute Neutrophil Count 4.8 X10^3/uL (2.0-7.7); Basophil# 0.06 X10^3/uL; Basophil% 0.8 % (0-1); Eosinophil# 0.35 X10^3/uL; Eosinophils% 4.4 % (0-5); Hematocrit 44.5 % (40-54); Lymphocyte # 2.07 X10^3/ul (0.83-4.51); Lymphocyte % 26.1 % (19-41); Mean Corp Hgb Conc 33.7 g/dL (32-36); Mean Corpuscular Hgb 32.1 pg (27.0-32.0); Mean Corpuscular Volume 95.3 fL (80-94); Mean Platelet Vol. 10.8 fl (6.2-12.0); Monocyte# 0.65 X10^3/uL; Monocyte% 8.2 % (0-10); NRBC Flagged by Analyzer 0 % (0-5); Neutrophil # 4.77 X10^3/uL (2.7-7.7); Neutrophil % 60.2 % (47-70); Platelet Count 228 K/mm3 (150-450); RBC Distribution Width SD 45.7 fl (35.1-43.9); Red Blood Count 4.67 M/mm3 (4.6-6.2); White Blood Count 7.9 K/mm3 (4.4-11.0)
[2022-10-14 10:03] LABS: Color, Urine Yellow (Yellow); Glucose, Dipstick Normal (Normal); Ketone-Dipstick Negative (Negative); Leukocyte Esterase-Dipstick Negative /ul (Negative); Nitrite-Dipstick Negative (Negative); Occult Blood-Urine Negative /ul (Negative); Protein-Dipstick Negative (Negative); Urine Bilirubin Dipstick Negative (Negative); Urine Clarity Clear (Clear); Urine Urobilinogen Normal (Normal)
[2022-10-14 10:10] LABS: Hemoglobin A1c 5.6 % (3.8-5.6)
[2022-10-14 10:17] LABS: AST(SGOT) 18 U/L (15-37); Alanine Aminotransfer ALT/SGPT 34 U/L (16-61); Albumin, Serum 3.4 g/dL (3.2-5.0); Alkaline Phosphatase 63 U/L (45-117); Anion Gap 7 (5-15); BUN 13 mg/dL (7-18); BUN/Creat Ratio 11.7 RATIO (10-20); Calcium,Total 8.8 mg/dL (8.5-10.1); Chloride 108 mmol/L (98-107); Cholesterol 222 mg/dL (200); Creatinine, Serum 1.11 mg/dL (0.70-1.30); EST Glomerular Filtration Rate 70 mL/min (>60); Est Glom Filt Rate - Afr Amer 85 mL/min (>60); Globulin 3.5 g/dL (2.2-4.2); Glucose 110 mg/dL (74-106); High Density Lipoprotein 76 mg/dL; PSA,Total- Diagnostic 2.13 ng/mL (0.0-4.0); Protein, Total 6.9 g/dL (6.4-8.2); Sodium Level 140 mmol/L (136-145); Thyroid Stim Hormone (TSH) 2.08 uIU/mL (0.358-3.74); Triglycerides 69 mg/dL; Very Low Density Lipoprotein 14 mg/dL (5-40)
== END | disposition home or self-care (01) ==
LOC: MFPLAB 08:24
PROVIDERS: PCP Family Medicine; Referring Provider Family Medicine; Visit Provider Family Medicine
DX: I10 Essential (primary) hypertension (principal); R97.20 Elevated prostate specific antigen [PSA]; R73.02 Impaired glucose tolerance (oral); Z12.5 Encounter for screening for malignant neoplasm of prostate
CPT/HCPCS: 36415; 80053; 80061; 81001; 83036; 84153; 84443; 85025

== ENCOUNTER 2022-12-24 12:54 | Day surgery (SDC) | payer MEDICARE, OTHER, SELFPAY ==
--- NOTE | 2022-12-18 09:48 | EKG12_ITS ---
Test Reason : PREOP Blood Pressure : / mmHG Vent. Rate : 084 BPM Atrial Rate : 084 BPM P-R Int : 172 ms QRS Dur : 098 ms QT Int : 374 ms P-R-T Axes : 054 013 034 degrees QTc Int : 441 ms Normal sinus rhythm Normal ECG Confirmed by AR JOHNSON, CHUNG ([id number]), health editor PRATIMA STOCK ([id number]) on 12/22/2022 9:48:15 AM Referred By: Luis Lara Confirmed By:YESI JOYNER MD
--- NOTE | 2022-12-24 | HERN_PTH ---
PATIENT: ALF SANCHEZ LOC: [facility] [place] U#:[id number] AGE/SX: 67/M ROOM: RE12/24/[address]: Dr. Luis Lara MD : 1955 BED: DIS: 12/24/2022 SPEC #: [id number] RECD: 12/24/22 17:02 STATUS: SHERRI NILSA #: [id number] DAPHNIE: 12/24/22 00:[address]: Luis Lara DEPT: SURGICAL PATHOLOGY RECD BY: Bro Copeland ENTERED: 12/25/22 09:25 SP TYPE: Hernia OTHR DR: Dr. Ramon Kennedy MD Tissues: HERNIA Procedures: Surgery Specimen Level II HEADER OPERATION: Umbilical hernia repair with mesh PRE-OP DIAGNOSIS: Umbilical hernia TISSUE SUBMITTED: Umbilical hernia sac and contents MICROSCOPIC DIAGNOSIS Umbilical hernia sac and contents, excision: Fibrofatty tissue with fibrosis consistent with hernia sac and contents. AM:mert 12/26/2022 MICROSCOPIC DESCRIPTION Slides are reviewed. GROSS DESCRIPTION Received in fixative is one container labeled with the patient's name and designated hernia sac and contents. The specimen consists of a single irregular fragment of pink-neely soft tissue measuring 1.5 x 1 x 0.2 cm. The specimen is totally submitted in one cassette. / AM:mert 12/25/2022 TC:5 CPT: 70443
[2022-12-24 13:32] VITALS: BP 148/78; PULSE 77; RESP 18; TEMP 36.4; O2SAT 99; BMI 28.5
[2022-12-24] MEDS: Lactated Ringers 1,000 ML 15 ML IV ×2 (13:36→15:03)
[2022-12-24] MEDS: Cefazolin 2 GM in 0.9% Normal Saline 100 ML IV (14:00)
--- NOTE | 2022-12-24 14:05 | HP.PCM_ITS ---
Assessment & Plan Assessment/Plan (1) Umbilical hernia: QUALIFIERS: Obstruction and gangrene presence: without obstruction or gangrene Qualified Code(s): K42.9 - Umbilical hernia without obstruction or gangrene PLAN: Plan Intake Chief Complaint: umbilical hernia Allergies No Known Allergies Allergy (Verified 12/09/22 13:18) Medications apixaban 2.5 mg tablet (Eliquis) 2.5 mg PO BID 08/12/18 [History Confirmed 12/09/22] amlodipine 10 mg tablet 10 mg PO DAILY 12/09/22 [History Confirmed 12/09/22] rosuvastatin 10 mg tablet (Crestor) 10 mg PO DAILY 12/09/22 [History Confirmed 12/09/22] Assessment and Plan Assessment and Plan (1) Umbilical hernia: ?Status:?Acute ?Qualifiers: ?Obstruction and gangrene presence:?without obstruction or gangrene? Qualified Code(s):?K42.9 - Umbilical hernia without obstruction or gangrene ?Plan: I have asked the patient to stop his Eliquis 2 days before surgery. 12/09/22 1404 <Electronically signed by Luis Lara MD> Date Luis Lara MD cc:? Dr. Ramon Kennedy MD ~* Signed Intake Vital Signs ? 12/09/2312:16 Height 5 ft 11 in Weight: 209 lb 8 oz BMI 29.2 BP 147/80 H Blood Pressure Location Rt brachial Position Sitting Respiration 18 Pulse 92 Pulse Source Monitor Temp 97.5 F L Temp Source Temporal Pulse Oximetry (%) 99 Oxygen Delivery Method room air Intake Visit Reasons:?UMBILICAL HERNIA Chief Complaint: umbilical hernia Physician Intensivist Required: No Is patient in pain?: No Allergies No Known Allergies Allergy (Verified 12/09/22 13:18) Medications apixaban 2.5 mg tablet (Eliquis) 2.5 mg PO BID 08/12/18 [History Confirmed 12/09/22] amlodipine 10 mg tablet 10 mg PO DAILY 12/09/22 [History Confirmed 12/09/22] rosuvastatin 10 mg tablet (Crestor) 10 mg PO DAILY 12/09/22 [History Confirmed 12/09/22] PFSH Medical History?(Updated 12/09/22 @ 14:[address] Luis Lara MD) Blood thinned due to long-term anticoagulant use Chest pain GERD (gastroesophageal reflux disease) History of DVT (deep vein thrombosis) HTN (hypertension) Surgical History?(Updated 12/09/22 @ 13:15 by Jackelyn Edwards) No history of previous surgery Family History?(Updated 12/09/22 @ 13:16 by Jackelyn Edwards) Grandmother Colon cancer Breast cancerMother Diabetes Social History?(Updated 12/09/22 @ 13:16 by Jackelyn Edwards) Smoking Status:? Current some day smoker (Smokes cigar; rarely.) alcohol intake:? current alcohol intake frequency: a few times a month substance use type:? does not use HPI HPI HPI: Patient is a 67-year-old male here with umbilical hernia.? He reports this hernia is been there about a year and is growing larger and more bothersome.? He also had a right groin strain back in June while moving some boxes. ROS General General: No weight change, appetite, fatigue, colon cancer, breast cancer or weakness HEENT HEENT: No difficulty swallowing, eye injury, eye surgery, swollen glands or hoarseness Endo Endocrine: No thyroid disease, diabetes mellitus, thyroid cancer, Hair loss, heat intolerance or cold intolerance Skin Skin: No rash or changing moles Breast Breast: No left breast lump, right breast lump, nipple discharge, breast pain, abnormal mammogram, abnormal US or breast enlargement Musc Musculoskeletal: No back problems, arthritis, rheumatoid arthritis, gout or joint pain Cardio Cardiovascular: Yes high blood pressure; No murmur, pacemaker, heart disease, atrial fibrillation, heart attack, heart stent, palpitations, shortness of breat with exertion or chest pain Psych Psychiatric: No depression, anxiety or hearing voices Resp Respiratory: No shortness of breath, No sleep apnea, No cough, No COPD, No asthma, No emphysema and No wheezing Gastro Gastrointestinal: No abdominal pain, No nausea or vomiting, No diarrhea, No constipation, No blood in stool, No acid reflux, No hemorrhoids, No ulcers, No gallbladder problem and No black,tarry stools Reyes Hematologic: Yes blood thinners, No blood disorders, No bleeding, No anemia and No blood clots Additional Details: Eliquis BID due to history of DVT Neuro Neurologic: No system reviewed and no additional complaints, except as documented, No as per HPI, No abnormal gait, No abnormal hearing, No abnormal movements, No abnormal speech, No behavioral changes, No burning sensations, No confusion, No convulsions, No disequilibrium, No dizziness, No localized weakness, No frequent falls, No headache(s), No lack of coordination, No loss of vision, No memory loss, No numbness, No other visual disturbances, No radicular pain, No restless legs, No sensory deficit, No syncope, No tingling, No tremor(s), No weakness and No other Exam Const General: cooperative Orientation: alert and oriented x3 HENMT Head: normal to inspection Neck Neck: normal visual inspection and full ROM Chest Chest palpation & inspection: normal inspection of the chest Resp Effort & Inspection: normal respiratory effort Auscultation: clear to auscultation bilaterally Cardio Rate: regular rate Rhythm: regular rhythm GI Inspection: non-distended Palpation: soft, hernia umbilical and nontender Skin General: no rashes or lesions noted Neuro General: patient alert and patient oriented x3 Extrem General: full ROM Psych Appearance: grossly normal Mental Status: mental status grossly normal Assessment and Plan Assessment and Plan (1) Umbilical hernia: ?Status:?Acute ?Qualifiers: ?Obstruction and gangrene presence:?without obstruction or gangrene? Qualified Code(s):?K42.9 - Umbilical hernia without obstruction or gangrene ?Plan: Patient has an umbilical hernia and I discussed umbilical hernia repair with possible mesh.? I explained that if the defect was over 1 cm I would recommend mesh placement.? I discussed the postoperative care as well as the risks of bleeding, infection, injury to underlying organs.? I also discussed mesh placement in detail if the defect was over 1 cm.? Patient understands all the risks as well to proceed.? He says that he had right groin pain back in June and it comes and goes intermittently.? I was unable to palpate an obvious right groin hernia.? If the patient develops any bulging I would repair the hernia at that time.? At this time the patient says it does not limit his lifestyle and the pain is minimal. Luis Lara MD Pager: [facility] [address] [place] [address], [address] [place] [address] Office: I have seen the patient and the H&P has been reviewed. No changes from prior exam.
[2022-12-24] MEDS: Bupiv/Epi 0.5% Mpf 30 ML Vial (14:13)
[2022-12-24 14:45] VITALS: BP 120/76; BP 148/78; PULSE 85; PULSE 88; RESP 18; TEMP 36.9; O2SAT 94
[2022-12-24 15:00] VITALS: BP 124/79; BP 148/78; PULSE 81; RESP 18; O2SAT 95
--- NOTE | 2022-12-24 15:04 | PCM.OPRPT ---
Report of Operation Date of Procedure: 12/24/22 Pre-Operative Diagnosis: Umbilical hernia less than 3 cm Post-Operative Diagnosis: Same Surgery/Procedure Performed:: Umbilical hernia repair Description of Surgical Findings:: Umbilical hernia defect less than 1 cm Specimen's removed: Hernia sac Description of Procedure: Patient brought back to the operating room and general anesthesia was induced. The abdomen was prepped and draped in usual sterile fashion. Inferior to the umbilicus and a curvilinear incision was marked and then injected with local anesthetic. Scalpel was used to make an incision. The umbilical stalk was sharply removed from the hernia sac. The fascia was cleared around all edges and the hernia sac was removed. The contents were abdominal fat and they were reduced into the abdomen. The defect was measured and it was approximately 9 mm. The defect was closed with interrupted Nurolon sutures. Mesh was not placed as the defect was less than 1 cm. The subcutaneous tissue was irrigated and suctioned dry. The umbilical stalk was sutured to the fat using 3-0 Vicryl suture. The skin was closed using running 4-0 Monocryl suture. Steri-Strips and bandage were applied. Patient tolerated procedure well was brought to PACU in stable condition. Admit VTE Documentation VTE Mechan Device Prophylaxis: SCD's
--- NOTE | 2022-12-24 15:08 | DCINST_ITS ---
Discharge Instructions Procedure Hernia Diet Discharge Diet: Light diet - advance as tolerated Activity Discharge Activity: May Not Drive (for 2-3 days or while taking narcotic pain meds.) and May Shower (with the bandage in place 1-2 days after surgery.) Lifting Restrictions: 20 pounds for 4 weeks. Additional Activity Instructions:: Climbing stairs is fine, walking is encouraged. Sitting in bed may be uncomfortable. Sitting up using your lateral muscles (sitting up sideways) is usually more comfortable. Do not drive, work heavy equipment of sign legal documents for 24 hours. Pain medications may cause nausea, you should typically eat light foods as you take your pain medications. Pain medications may also cause constipation. If you have difficulty with this, discuss with your doctor. Dressing / Incision Call your doctor if your incision/area has: Continuous Slow Oozing, Sudden Increased Bleeding, Increased Pain/ Swelling, Increased Redness and Foul Smelling Discharge Call your doctor if you observe: Fever of 101 or Higher Suture Line Care: Avoid Pulling/Pushing and Avoid Pinching/Bending Remove Dressing in: 3 days (Remove clear bandage in 3 days, remove Steri-Strips in 7 to 10 days.) Cleanse incision/area with: Soap & Water Follow Up Care Please Follow Up With: Luis Lara MD When: Please call to schedule 2 week follow up appointment. [phone] Test Results: Test results from this visit will be discussed in further detail at your follow- up appointment, if applicable. Discharge Plan Admission Attending Provider: Luis Lara Primary Care Provider: Ramon Kennedy Instructions Additional Instructions / Restrictions: Resume Eliquis thursday Discharge Orders/Prescriptions Prescriptions: New oxycodone 5 mg tablet 5 - 10 mg PO Q6H PRN (Reason: pain) 5 Days Qty: 15 0RF No Action amlodipine 10 mg tablet 10 mg PO DAILY rosuvastatin [Crestor] 10 mg tablet 10 mg PO DAILY Eliquis 2.5 MG tablet 2.5 mg PO BID Referrals / Follow Up: Ramon Kennedy MD [Primary Care Provider] - Disposition Disposition (needs filled in before D/C Order can be placed): Home, Self Care
[2022-12-24 15:09] VITALS: BP 129/79; BP 148/78; PULSE 80; RESP 18; TEMP 36.4; O2SAT 95
[2022-12-24 15:50] VITALS: BP 148/78; BP 153/80; PULSE 75; RESP 16; TEMP 36.2; O2SAT 96
== END 2022-12-24 15:56 | disposition home or self-care (01) ==
LOC: SDC 12:55 → AC 12:55
PROVIDERS: PCP Family Medicine; Referring Provider Surgery; Visit Provider Surgery
PROC: (CPT 49591; principal; 2022-12-24 15:25)
DX: K42.9 Umbilical hernia without obstruction or gangrene (principal); F17.290 Nicotine dependence, other tobacco product, uncomplicated; I10 Essential (primary) hypertension; E78.00 Pure hypercholesterolemia, unspecified; Z79.01 Long term (current) use of anticoagulants; Z79.899 Other long term (current) drug therapy; Z86.718 Personal history of other venous thrombosis and embolism
CPT/HCPCS: 49591; 00830; 88302; 93005; J7120; J2405

== ENCOUNTER → 2023-01-15 | Outpatient (CLI) | payer MEDICARE, OTHER, SELFPAY ==
[2023-01-15 10:13] LABS: Absolute Lymphocyte Count 1.75 X10^3/uL (0.83-4.51); Basophil# 0.05 X10^3/uL; Basophil% 0.7 % (0-1); Eosinophil# 0.19 X10^3/uL; Eosinophils% 2.8 % (0-5); Hematocrit 43.6 % (40-54); Hemoglobin 14.5 g/dL (13.0-16.5); Lymphocyte # 1.75 X10^3/ul (0.83-4.51); Lymphocyte % 26.2 % (19-41); Mean Corp Hgb Conc 33.3 g/dL (32-36); Mean Corpuscular Hgb 31.8 pg (27.0-32.0); Mean Corpuscular Volume 95.6 fL (80-94); Mean Platelet Vol. 11.2 fl (6.2-12.0); Monocyte# 0.72 X10^3/uL; Monocyte% 10.8 % (0-10); NRBC Flagged by Analyzer 0 % (0-5); Neutrophil # 3.95 X10^3/uL (2.7-7.7); Neutrophil % 59.4 % (47-70); Platelet Count 191 K/mm3 (150-450); RBC Distribution Width CV 12.4 % (11.6-14.6); RBC Distribution Width SD 43.8 fl (35.1-43.9); Red Blood Count 4.56 M/mm3 (4.6-6.2); White Blood Count 6.7 K/mm3 (4.4-11.0)
[2023-01-15 10:33] LABS: Hemoglobin A1c 5.7 % (3.8-5.6)
[2023-01-15 10:38] LABS: ALB/GLOB Ratio 1.2 RATIO (0.9-2.4); AST(SGOT) 26 U/L (15-37); Alanine Aminotransfer ALT/SGPT 52 U/L (16-61); Albumin, Serum 3.6 g/dL (3.2-5.0); Alkaline Phosphatase 60 U/L (45-117); Anion Gap 8 (5-15); BUN 21 mg/dL (7-18); BUN/Creat Ratio 20.2 RATIO (10-20); Calcium,Total 8.9 mg/dL (8.5-10.1); Chloride 106 mmol/L (98-107); Cholesterol 146 mg/dL (200); Creatinine, Serum 1.04 mg/dL (0.70-1.30); EST Glomerular Filtration Rate 75 mL/min (>60); Est Glom Filt Rate - Afr Amer 91 mL/min (>60); Globulin 3.1 g/dL (2.2-4.2); Glucose 97 mg/dL (74-106); High Density Lipoprotein 86 mg/dL; Potassium 3.7 mmol/L (3.5-5.1); Protein, Total 6.7 g/dL (6.4-8.2); Sodium Level 140 mmol/L (136-145); Triglycerides 52 mg/dL; Very Low Density Lipoprotein 10 mg/dL (5-40)
== END | disposition home or self-care (01) ==
LOC: MFPLAB 08:09
PROVIDERS: PCP Family Medicine; Referring Provider Family Medicine; Visit Provider Family Medicine
DX: I10 Essential (primary) hypertension (principal); R73.02 Impaired glucose tolerance (oral)
CPT/HCPCS: 36415; 80053; 80061; 83036; 85025

== ENCOUNTER → 2023-04-15 | Outpatient (CLI) | payer MEDICARE, OTHER, SELFPAY ==
[2023-04-15 08:04] LABS: Bacteria 0 SEEN /hpf (None Seen); Mucous, Urine 0 SEEN /hpf (<or=2+); Red Blood Cells-Urine 0 SEEN /hpf (0-5); Squamous Epithelial Cells - UA 0 SEEN /hpf (0-5); White Blood Cells 0 SEEN /hpf (0-5)
[2023-04-15 10:22] LABS: Absolute Lymphocyte Count 1.78 X10^3/uL (0.83-4.51); Absolute Neutrophil Count 3.6 X10^3/uL (2.0-7.7); Basophil# 0.05 X10^3/uL; Basophil% 0.8 % (0-1); Eosinophil# 0.21 X10^3/uL; Eosinophils% 3.4 % (0-5); Hematocrit 44.3 % (40-54); Hemoglobin 14.5 g/dL (13.0-16.5); Lymphocyte # 1.78 X10^3/ul (0.83-4.51); Lymphocyte % 28.7 % (19-41); Mean Corp Hgb Conc 32.7 g/dL (32-36); Mean Corpuscular Hgb 31.7 pg (27.0-32.0); Mean Corpuscular Volume 96.9 fL (80-94); Mean Platelet Vol. 11.5 fl (6.2-12.0); Monocyte# 0.59 X10^3/uL; Monocyte% 9.5 % (0-10); NRBC Flagged by Analyzer 0 % (0-5); Neutrophil # 3.55 X10^3/uL (2.7-7.7); Neutrophil % 57.3 % (47-70); Platelet Count 205 K/mm3 (150-450); RBC Distribution Width CV 12.7 % (11.6-14.6); RBC Distribution Width SD 45.4 fl (35.1-43.9); Red Blood Count 4.57 M/mm3 (4.6-6.2); White Blood Count 6.2 K/mm3 (4.4-11.0)
[2023-04-15 10:50] LABS: ALB/GLOB Ratio 1.1 RATIO (0.9-2.4); AST(SGOT) 28 U/L (15-37); Alanine Aminotransfer ALT/SGPT 47 U/L (16-61); Albumin, Serum 3.7 g/dL (3.2-5.0); Alkaline Phosphatase 65 U/L (45-117); Anion Gap 7 (5-15); BUN 21 mg/dL (7-18); Calcium,Total 8.9 mg/dL (8.5-10.1); Chloride 110 mmol/L (98-107); Cholesterol 148 mg/dL (200); EST Glomerular Filtration Rate 79 mL/min (>60); Est Glom Filt Rate - Afr Amer 96 mL/min (>60); Globulin 3.3 g/dL (2.2-4.2); Glucose 103 mg/dL (74-106); High Density Lipoprotein 83 mg/dL; Potassium 4.1 mmol/L (3.5-5.1); Sodium Level 141 mmol/L (136-145); Triglycerides 39 mg/dL; Very Low Density Lipoprotein 8 mg/dL (5-40)
[2023-04-15 11:14] LABS: Hemoglobin A1c 5.5 % (3.8-5.6)
[2023-04-15 11:30] LABS: Color, Urine Yellow (Yellow); Glucose, Dipstick Normal (Normal); Ketone-Dipstick Negative (Negative); Leukocyte Esterase-Dipstick Negative /ul (Negative); Nitrite-Dipstick Negative (Negative); Occult Blood-Urine Negative /ul (Negative); Protein-Dipstick Negative (Negative); Urine Bilirubin Dipstick Negative (Negative); Urine Clarity Clear (Clear); Urine Urobilinogen Normal (Normal)
== END | disposition home or self-care (01) ==
LOC: MFPLAB 08:03
PROVIDERS: PCP Family Medicine; Visit Provider Family Medicine
DX: E78.00 Pure hypercholesterolemia, unspecified (principal); I10 Essential (primary) hypertension; R73.02 Impaired glucose tolerance (oral)
CPT/HCPCS: 36415; 80053; 80061; 81001; 83036; 85025

== ENCOUNTER → 2023-10-14 | Outpatient (CLI) | payer MEDICARE, OTHER, SELFPAY ==
[2023-10-14 08:07] LABS: Bacteria 0 SEEN /hpf (None Seen); Mucous, Urine 0 SEEN /hpf (<or=2+); Red Blood Cells-Urine 0 SEEN /hpf (0-5); Squamous Epithelial Cells - UA 0 SEEN /hpf (0-5); White Blood Cells 0 SEEN /hpf (0-5)
[2023-10-14 10:17] LABS: Absolute Lymphocyte Count 1.94 X10^3/uL (0.83-4.51); Absolute Neutrophil Count 4.2 X10^3/uL (2.0-7.7); Basophil# 0.05 X10^3/uL; Basophil% 0.7 % (0-1); Eosinophil# 0.15 X10^3/uL; Eosinophils% 2.1 % (0-5); Hematocrit 45.6 % (40-54); Hemoglobin 14.6 g/dL (13.0-16.5); Lymphocyte # 1.94 X10^3/ul (0.83-4.51); Lymphocyte % 27.4 % (19-41); Mean Corpuscular Volume 96.8 fL (80-94); Mean Platelet Vol. 11.3 fl (6.2-12.0); Monocyte# 0.69 X10^3/uL; Monocyte% 9.7 % (0-10); NRBC Flagged by Analyzer 0 % (0-5); Neutrophil # 4.24 X10^3/uL (2.7-7.7); Neutrophil % 59.8 % (47-70); Platelet Count 195 K/mm3 (150-450); RBC Distribution Width CV 12.5 % (11.6-14.6); RBC Distribution Width SD 45.1 fl (35.1-43.9); Red Blood Count 4.71 M/mm3 (4.6-6.2); White Blood Count 7.1 K/mm3 (4.4-11.0)
[2023-10-14 10:44] LABS: Color, Urine Yellow (Yellow); Glucose, Dipstick Normal (Normal); Ketone-Dipstick Negative (Negative); Leukocyte Esterase-Dipstick Negative /ul (Negative); Nitrite-Dipstick Negative (Negative); Occult Blood-Urine Negative /ul (Negative); Protein-Dipstick Negative (Negative); Urine Bilirubin Dipstick Negative (Negative); Urine Clarity Clear (Clear); Urine Urobilinogen Normal (Normal)
[2023-10-14 11:06] LABS: ALB/GLOB Ratio 1.1 RATIO (0.9-2.4); AST(SGOT) 22 U/L (15-37); Alanine Aminotransfer ALT/SGPT 42 U/L (16-61); Albumin, Serum 3.8 g/dL (3.2-5.0); Alkaline Phosphatase 61 U/L (45-117); Anion Gap 7 (5-15); BUN 17 mg/dL (7-18); Calcium,Total 8.7 mg/dL (8.5-10.1); Chloride 109 mmol/L (98-107); Cholesterol 146 mg/dL (200); Creatinine, Serum 1.06 mg/dL (0.70-1.30); EST Glomerular Filtration Rate 74 mL/min (>60); Est Glom Filt Rate - Afr Amer 89 mL/min (>60); Globulin 3.4 g/dL (2.2-4.2); Glucose 112 mg/dL (74-106); High Density Lipoprotein 83 mg/dL; Potassium 3.9 mmol/L (3.5-5.1); Protein, Total 7.2 g/dL (6.4-8.2); Sodium Level 142 mmol/L (136-145); Triglycerides 59 mg/dL; Very Low Density Lipoprotein 12 mg/dL (5-40)
[2023-10-14 11:29] LABS: Hemoglobin A1c 5.6 % (3.8-5.6)
== END | disposition home or self-care (01) ==
LOC: MFPLAB 08:05
PROVIDERS: PCP Family Medicine; Visit Provider Family Medicine
DX: R73.02 Impaired glucose tolerance (oral) (principal); E78.00 Pure hypercholesterolemia, unspecified; I10 Essential (primary) hypertension
CPT/HCPCS: 36415; 80053; 80061; 81001; 83036; 85025

== ENCOUNTER 2023-11-25 07:39 | Day surgery (SDC) | payer MEDICARE, OTHER, SELFPAY ==
[2023-11-25 07:58] VITALS: BP 145/76; PULSE 87; RESP 16; TEMP 36.9; O2SAT 98; BMI 29.0
[2023-11-25] MEDS: Lactated Ringers 1,000 ML 15 ML IV (08:15)
--- NOTE | 2023-11-25 09:11 | HP.PCM_ITS ---
History and Physical Date of Admission: 11/25/23 Intake Vital Signs 12/24/2312:32 11/05/2309:43 Height 5 ft 11 in BP 146/83 H Blood Pressure Location Lt brachial Position Sitting Respiration 17 Pulse 86 Pulse Source Monitor Intake Visit Reasons: Herina Surg Armani felt pop when lifting grandchild Chief Complaint: hernia surgery November, felt pop lifting Is patient in pain?: No Allergies No Known Allergies Allergy (Verified 11/12/23 11:02) Medications apixaban 2.5 mg tablet (Eliquis) 2.5 mg PO BID 08/12/18 [History Confirmed 11/12/23] amlodipine 10 mg tablet 10 mg PO DAILY 12/09/22 [History Confirmed 11/12/23] rosuvastatin 10 mg tablet (Crestor) 10 mg PO DAILY 12/09/22 [History Confirmed 11/12/23] multivitamin (Daily Multi-Vitamin tablet) 1 tab PO DAILY 11/12/23 [History Confirmed 11/12/23] sertraline 25 mg tablet 25 mg PO DAILY 11/12/23 [History Confirmed 11/12/23] [facility] Medical History (Updated 11/12/23 @ 14:[address] Luis Lara MD) Alcohol use Blood thinned due to long-term anticoagulant use Chest pain GERD (gastroesophageal reflux disease) Heartburn High cholesterol History of DVT (deep vein thrombosis) History of edema History of steroid therapy History of stress test HTN (hypertension) Non-smoker Wears contact lenses Wears glasses Surgical History History of umbilical hernia repair Hx of colonoscopy Hx of prostate biopsy Family History Grandmother Colon cancer Breast cancerMother Diabetes Social History Smoking Status: Never smoker alcohol intake: current alcohol intake frequency: a few times a month substance use type: does not use HPI HPI HPI: Patient is a 68-year-old male here with umbilical bulging. He says a couple months after his last hernia repair which was in November he felt a pop when lifting his grandchild and he has been noticing bulging since. He does not note any increased pain or nausea or vomiting. ROS General General: No weight change, appetite, fatigue, colon cancer, breast cancer or weakness HEENT HEENT: No difficulty swallowing, eye injury, eye surgery, swollen glands or hoarseness Endo Endocrine: No thyroid disease, diabetes mellitus, thyroid cancer, Hair loss, heat intolerance or cold intolerance Skin Skin: No rash or changing moles Breast Breast: No left breast lump, right breast lump, nipple discharge, breast pain, abnormal mammogram, abnormal US or breast enlargement Musc Musculoskeletal: No back problems, arthritis, rheumatoid arthritis, gout or joint pain Cardio Cardiovascular: Yes high blood pressure; No murmur, pacemaker, heart disease, atrial fibrillation, heart attack, heart stent, palpitations, shortness of breat with exertion or chest pain Psych Psychiatric: No depression, anxiety or hearing voices Resp Respiratory: No shortness of breath, No sleep apnea, No cough, No COPD, No asthma, No emphysema and No wheezing Gastro Gastrointestinal: No abdominal pain, No nausea or vomiting, No diarrhea, No constipation, No blood in stool, No acid reflux, No hemorrhoids, No ulcers, No gallbladder problem and No black,tarry stools Reyes Hematologic: Yes blood thinners, No blood disorders, No bleeding, No anemia and No blood clots Additional Details: Eliquis BID due to history of DVT Neuro Neurologic: No system reviewed and no additional complaints, except as documented, No as per HPI, No abnormal gait, No abnormal hearing, No abnormal movements, No abnormal speech, No behavioral changes, No burning sensations, No confusion, No convulsions, No disequilibrium, No dizziness, No localized weakness, No frequent falls, No headache(s), No lack of coordination, No loss of vision, No memory loss, No numbness, No other visual disturbances, No radicular pain, No restless legs, No sensory deficit, No syncope, No tingling, No tremor(s), No weakness and No other Exam Const General: cooperative Orientation: alert and oriented x3 HENMT Head: normal to inspection Neck Neck: normal visual inspection and full ROM Chest Chest palpation & inspection: normal inspection of the chest Resp Effort & Inspection: normal respiratory effort Auscultation: clear to auscultation bilaterally Cardio Rate: regular rate Rhythm: regular rhythm GI Inspection: non-distended Palpation: soft, hernia umbilical and nontender Skin General: no rashes or lesions noted Neuro General: patient alert and patient oriented x3 Extrem General: full ROM Psych Appearance: grossly normal Mental Status: mental status grossly normal Assessment and Plan Assessment and Plan (1) Recurrent umbilical hernia: Status: Acute Plan: The patient seems to have recurrence of his umbilical hernia. It was fixed without mesh last time as it was very small. I recommend fixing it with mesh at this time as it is a recurrence. It is still very small. I discussed open umbilical hernia repair with mesh with him. I discussed the risks including but not limited to bleeding, infection, injury underlying organs. Patient will stop his Eliquis for 2 days prior to surgery. Luis Lara MD Pager: [facility] [address] [place] [address], [address] [place] [address] Office: I have examined the patient and the H&P has been reviewed. There are no clinical changes since date of exam.
[2023-11-25] MEDS: Cefazolin 2 GM in 0.9% Normal Saline (100mL Bag) 100 ML IV (09:44)
[2023-11-25] MEDS: Bupivacaine Mpf 0.5% 30 ML VIAL (10:17)
[2023-11-25 10:30] VITALS: BP 131/79; BP 145/76; PULSE 83; RESP 16; TEMP 36.6; O2SAT 95
--- NOTE | 2023-11-25 10:32 | PCM.OPRPT ---
Report of Operation Date of Procedure: 11/25/23 Pre-Operative Diagnosis: Recurrent umbilical hernia less than 3 cm Post-Operative Diagnosis: Same Surgery/Procedure Performed:: Recurrent umbilical hernia repair with mesh, less than 3 cm Type of Anesthesia: General/Regional Specimen's removed: None Estimated Blood Loss (mL): 5 Description of Procedure: Patient was brought back to the operating room and the general anesthesia was induced. The abdomen was prepped and draped in usual sterile fashion. A curvilinear incision was injected with local anesthetic inferior to the umbilicus at the site of his prior incision. The prior incision was reincised. The umbilical stalk was taken off of its attachments. The hernia was identified. It was dissected free circumferentially and then reduced and the preperitoneal area was dissected free to allow for mesh placement. A medium Ventralex ST mesh was placed in the preperitoneal space. It was sutured to the anterior fascia using interrupted 0 PDS sutures. The area was irrigated and suctioned dry. Next the fascia was reapproximated using interrupted 0 Nurolon sutures. The subcutaneous tissue was irrigated and suctioned dry. The umbilical stalk was tacked to the fascia using 3-0 Vicryl suture. The skin was closed using interrupted 3-0 Vicryl sutures. Steri-Strips and bandages were applied. Patient tolerated the procedure well was brought to PACU in stable condition. Grafts/Implants Used: Medium Ventralex ST mesh Admit VTE Documentation VTE Mechan Device Prophylaxis: SCD's
--- NOTE | 2023-11-25 10:34 | EX.PCM.DISCH ---
Discharge Instructions Procedure Hernia Diet Discharge Diet: Light diet - advance as tolerated Activity Discharge Activity: May Not Drive (for 2-3 days or while taking narcotic pain meds.) and May Shower (with the bandage in place 1-2 days after surgery.) Lifting Restrictions: 20 pounds for 4 weeks. Additional Activity Instructions:: Climbing stairs is fine, walking is encouraged. Sitting in bed may be uncomfortable. Sitting up using your lateral muscles (sitting up sideways) is usually more comfortable. Do not drive, work heavy equipment of sign legal documents for 24 hours. Pain medications may cause nausea, you should typically eat light foods as you take your pain medications. Pain medications may also cause constipation. If you have difficulty with this, discuss with your doctor. Dressing / Incision Call your doctor if your incision/area has: Continuous Slow Oozing, Sudden Increased Bleeding, Increased Pain/ Swelling, Increased Redness and Foul Smelling Discharge Call your doctor if you observe: Fever of 101 or Higher Suture Line Care: Avoid Pulling/Pushing and Avoid Pinching/Bending Remove Dressing in: 2 days (Remove clear bandages in 2 days, remove Steri-Strips in 7 to 10 days.) Follow Up Care Please Follow Up With: Luis Lara MD When: Please call to schedule 2 week follow up appointment. [phone] Test Results: Test results from this visit will be discussed in further detail at your follow-up appointment, if applicable. Discharge Plan Admission Attending Provider: Luis Lara Primary Care Provider: Ramon Kennedy Instructions Additional Instructions / Restrictions: Alternate ibuprofen and Tylenol for pain. Oxycodone for breakthrough. Resume Eliquis on Thursday Discharge Orders/Prescriptions Prescriptions: New oxycodone 5 mg tablet 5 - 10 mg PO Q6H PRN (Reason: pain) 5 Days Qty: 15 0RF No Action amlodipine 10 mg tablet 10 mg PO DAILY rosuvastatin [Crestor] 10 mg tablet 10 mg PO DAILY Eliquis 2.5 MG tablet 2.5 mg PO BID sertraline 25 mg tablet 25 mg PO DAILY Patient Comments: take 1 tablet by mouth once daily multivitamin [Daily Multi-Vitamin] Tablet 1 tab PO DAILY Referrals / Follow Up: Ramon Kennedy MD [Primary Care Provider] - Disposition Disposition (needs filled in before D/C Order can be placed): Home, Self Care
[2023-11-25 10:35] VITALS: BP 128/75; BP 145/76; PULSE 80; RESP 16; O2SAT 96
[2023-11-25 10:40] VITALS: BP 127/78; BP 145/76; PULSE 79; RESP 16; O2SAT 96
[2023-11-25 10:45] VITALS: BP 125/71; BP 145/76; PULSE 81; RESP 16; TEMP 36.6; O2SAT 95
[2023-11-25] MEDS: oxyCODONE 5 MG Tablet PO (11:07)
[2023-11-25] MEDS: Acetaminophen 325 MG Tablet 650 MG PO (11:07)
[2023-11-25 11:55] VITALS: BP 144/82; BP 145/76; PULSE 84; RESP 16; TEMP 36.5; O2SAT 96
== END 2023-11-25 12:07 | disposition home or self-care (01) ==
LOC: SDC 07:39 → AC 07:40
PROVIDERS: PCP Family Medicine; Referring Provider Surgery; Visit Provider Surgery
PROC: (CPT 49613; principal; 2023-11-25 09:00)
DX: K42.9 Umbilical hernia without obstruction or gangrene (principal); I10 Essential (primary) hypertension; E78.00 Pure hypercholesterolemia, unspecified; Z79.01 Long term (current) use of anticoagulants; Z79.899 Other long term (current) drug therapy; Z86.718 Personal history of other venous thrombosis and embolism
CPT/HCPCS: 49613; 00830; C1781; J7120; J2405

== ENCOUNTER → 2023-12-03 | Outpatient (CLI) | payer MEDICARE, OTHER, SELFPAY ==
[2023-12-03 10:55] LABS: PSA,Total - Annual Screen 2.54 ng/mL (0.00-4.00)
== END | disposition home or self-care (01) ==
LOC: MFPLAB 08:13
PROVIDERS: PCP Family Medicine; Visit Provider Family Medicine
DX: Z12.5 Encounter for screening for malignant neoplasm of prostate (principal)
CPT/HCPCS: 36415; 84153; G0103

== ENCOUNTER → 2024-05-31 | Outpatient (CLI) | payer MEDICARE, OTHER, SELFPAY ==
[2024-05-31 08:04] LABS: Bacteria 0 SEEN /hpf (None Seen); Mucous, Urine 0 SEEN /hpf (<or=2+); Red Blood Cells-Urine 0 SEEN /hpf (0-5); Squamous Epithelial Cells - UA 0 SEEN /hpf (0-5); White Blood Cells 0 SEEN /hpf (0-5)
[2024-05-31 10:04] LABS: Color, Urine Yellow (Yellow); Glucose, Dipstick Normal (Normal); Ketone-Dipstick Negative (Negative); Leukocyte Esterase-Dipstick Negative /ul (Negative); Nitrite-Dipstick Negative (Negative); Occult Blood-Urine Negative /ul (Negative); Protein-Dipstick Negative (Negative); Specific Gravity, Urine 1.015 (1.002-1.030); Urine Bilirubin Dipstick Negative (Negative); Urine Clarity Clear (Clear); Urine Urobilinogen Normal (Normal)
[2024-05-31 10:07] LABS: Absolute Lymphocyte Count 1.83 X10^3/uL (0.83-4.51); Absolute Neutrophil Count 2.6 X10^3/uL (2.0-7.7); Basophil# 0.04 X10^3/uL; Basophil% 0.8 % (0-1); Eosinophil# 0.13 X10^3/uL; Eosinophils% 2.5 % (0-5); Hematocrit 43.3 % (40-54); Lymphocyte # 1.83 X10^3/ul (0.83-4.51); Lymphocyte % 34.7 % (19-41); Mean Corp Hgb Conc 32.3 g/dL (32-36); Mean Corpuscular Hgb 30.5 pg (27.0-32.0); Mean Corpuscular Volume 94.3 fL (80-94); Mean Platelet Vol. 11.4 fl (6.2-12.0); Monocyte# 0.71 X10^3/uL; Monocyte% 13.4 % (0-10); NRBC Flagged by Analyzer 0 % (0-5); Neutrophil # 2.55 X10^3/uL (2.7-7.7); Neutrophil % 48.2 % (47-70); Platelet Count 146 K/mm3 (150-450); RBC Distribution Width CV 12.7 % (11.6-14.6); RBC Distribution Width SD 44.1 fl (35.1-43.9); Red Blood Count 4.59 M/mm3 (4.6-6.2); White Blood Count 5.3 K/mm3 (4.4-11.0)
[2024-05-31 10:26] LABS: ALB/GLOB Ratio 0.9 RATIO (0.9-2.4); AST(SGOT) 51 U/L (15-37); Alanine Aminotransfer ALT/SGPT 93 U/L (16-61); Albumin, Serum 3.3 g/dL (3.2-5.0); Alkaline Phosphatase 76 U/L (45-117); Anion Gap 6 (5-15); BUN 18 mg/dL (7-18); BUN/Creat Ratio 16.1 RATIO (10-20); Calcium,Total 8.9 mg/dL (8.5-10.1); Chloride 108 mmol/L (98-107); Cholesterol 127 mg/dL (200); Creatinine, Serum 1.12 mg/dL (0.70-1.30); EST Glomerular Filtration Rate 69 mL/min (>60); Est Glom Filt Rate - Afr Amer 84 mL/min (>60); Globulin 3.5 g/dL (2.2-4.2); Glucose 108 mg/dL (74-106); High Density Lipoprotein 50 mg/dL; Magnesium 2.3 mg/dL (1.6-2.6); Protein, Total 6.8 g/dL (6.4-8.2); Sodium Level 141 mmol/L (136-145); Triglycerides 69 mg/dL; Very Low Density Lipoprotein 14 mg/dL (5-40)
[2024-05-31 10:49] LABS: Hemoglobin A1c 5.7 % (3.8-5.6)
== END | disposition home or self-care (01) ==
LOC: MFPLAB 08:03
PROVIDERS: PCP Family Medicine; Visit Provider Family Medicine
DX: I10 Essential (primary) hypertension (principal); R73.02 Impaired glucose tolerance (oral)
CPT/HCPCS: 36415; 80053; 80061; 81001; 83036; 83735; 85025

== ENCOUNTER → 2024-06-07 | Outpatient (CLI) | payer MEDICARE, OTHER, SELFPAY ==
[2024-06-07 18:11] LABS: ALB/GLOB Ratio 1.1 RATIO (0.9-2.4); AST(SGOT) 42 U/L (15-37); Alanine Aminotransfer ALT/SGPT 101 U/L (16-61); Albumin, Serum 3.8 g/dL (3.2-5.0); Alkaline Phosphatase 68 U/L (45-117); Anion Gap 5 (5-15); BUN 22 mg/dL (7-18); BUN/Creat Ratio 19.1 RATIO (10-20); Calcium,Total 9.4 mg/dL (8.5-10.1); Chloride 109 mmol/L (98-107); Creatinine, Serum 1.15 mg/dL (0.70-1.30); EST Glomerular Filtration Rate 67 mL/min (>60); Est Glom Filt Rate - Afr Amer 81 mL/min (>60); Globulin 3.5 g/dL (2.2-4.2); Glucose 108 mg/dL (74-106); Potassium 4.1 mmol/L (3.5-5.1); Protein, Total 7.3 g/dL (6.4-8.2); Sodium Level 140 mmol/L (136-145)
[2024-06-07 18:43] LABS: Hepatitis B Surface Antibody Non-Reactive; Hepatitis B Surface Antigen Non-Reactive (Nonreactive); Hepatitis C Antibody Non-Reactive (Nonreactive)
== END | disposition home or self-care (01) ==
LOC: MFPLAB 14:58
PROVIDERS: PCP Family Medicine; Visit Provider Family Medicine
DX: R79.89 Other specified abnormal findings of blood chemistry (principal)
CPT/HCPCS: 36415; 80053; 86706; 86803; 87340

== ENCOUNTER → 2024-06-22 | Outpatient (CLI) | payer MEDICARE, OTHER, SELFPAY ==
[2024-06-22 10:55] LABS: AST(SGOT) 28 U/L (15-37); Alanine Aminotransfer ALT/SGPT 41 U/L (16-61); Albumin, Serum 3.4 g/dL (3.2-5.0); Alkaline Phosphatase 67 U/L (45-117); Anion Gap 4 (5-15); BUN 16 mg/dL (7-18); Bilirubin, Direct 0.17 mg/dL (0.00-0.30); Chloride 110 mmol/L (98-107); Creatinine, Serum 1.23 mg/dL (0.70-1.30); EST Glomerular Filtration Rate 62 mL/min (>60); Est Glom Filt Rate - Afr Amer 75 mL/min (>60); Globulin 3.5 g/dL (2.2-4.2); Glucose 112 mg/dL (74-106); Potassium 4.3 mmol/L (3.5-5.1); Protein, Total 6.9 g/dL (6.4-8.2); Sodium Level 141 mmol/L (136-145)
== END | disposition home or self-care (01) ==
LOC: MFPLAB 08:26
PROVIDERS: PCP Family Medicine; Visit Provider Family Medicine
DX: R79.89 Other specified abnormal findings of blood chemistry (principal)
CPT/HCPCS: 36415; 80053; 82248

== ENCOUNTER → 2024-12-14 | Outpatient (CLI) | payer MEDICARE, OTHER, SELFPAY ==
[2024-12-14 10:08] LABS: Absolute Lymphocyte Count 2.11 X10^3/uL (0.83-4.51); Absolute Neutrophil Count 4.4 X10^3/uL (2.0-7.7); Basophil# 0.04 X10^3/uL; Basophil% 0.5 % (0-1); Eosinophil# 0.13 X10^3/uL; Eosinophils% 1.8 % (0-5); Hemoglobin 14.3 g/dL (13.0-16.5); Lymphocyte # 2.11 X10^3/ul (0.83-4.51); Lymphocyte % 28.7 % (19-41); Mean Corp Hgb Conc 32.5 g/dL (32-36); Mean Corpuscular Hgb 31.2 pg (27.0-32.0); Mean Corpuscular Volume 96.1 fL (80-94); Monocyte# 0.66 X10^3/uL; NRBC Flagged by Analyzer 0 % (0-5); Neutrophil # 4.38 X10^3/uL (2.7-7.7); Neutrophil % 59.7 % (47-70); Platelet Count 221 K/mm3 (150-450); RBC Distribution Width CV 12.4 % (11.6-14.6); RBC Distribution Width SD 44.1 fl (35.1-43.9); Red Blood Count 4.58 M/mm3 (4.6-6.2); White Blood Count 7.3 K/mm3 (4.4-11.0)
[2024-12-14 10:28] LABS: ALB/GLOB Ratio 1.1 RATIO (0.9-2.4); AST(SGOT) 25 U/L (15-37); Alanine Aminotransfer ALT/SGPT 48 U/L (16-61); Albumin, Serum 3.6 g/dL (3.2-5.0); Alkaline Phosphatase 67 U/L (45-117); Anion Gap 5 (5-15); BUN 21 mg/dL (7-18); BUN/Creat Ratio 18.9 RATIO (10-20); Calcium,Total 9.1 mg/dL (8.5-10.1); Chloride 108 mmol/L (98-107); Cholesterol 171 mg/dL (200); Creatinine, Serum 1.11 mg/dL (0.70-1.30); EST Glomerular Filtration Rate 70 mL/min (>60); Est Glom Filt Rate - Afr Amer 84 mL/min (>60); Globulin 3.3 g/dL (2.2-4.2); Glucose 112 mg/dL (74-106); High Density Lipoprotein 83 mg/dL; Potassium 3.9 mmol/L (3.5-5.1); Protein, Total 6.9 g/dL (6.4-8.2); Sodium Level 141 mmol/L (136-145); Triglycerides 47 mg/dL; Very Low Density Lipoprotein 9 mg/dL (5-40)
[2024-12-14 12:28] LABS: Hemoglobin A1c 5.8 % (3.8-5.6)
== END | disposition home or self-care (01) ==
LOC: MFPLAB 08:04
PROVIDERS: PCP Family Medicine; Referring Provider Family Medicine; Visit Provider Family Medicine
DX: R73.02 Impaired glucose tolerance (oral) (principal); E78.00 Pure hypercholesterolemia, unspecified

== ENCOUNTER → 2025-01-18 | Outpatient (CLI) | payer MEDICARE, OTHER, SELFPAY ==
[2025-01-18 18:11] LABS: PSA,Total - Annual Screen 1.91 ng/mL (0.00-4.00)
== END | disposition home or self-care (01) ==
LOC: MFPLAB 15:28
PROVIDERS: PCP Family Medicine; Referring Provider Family Medicine; Visit Provider Family Medicine
DX: Z12.5 Encounter for screening for malignant neoplasm of prostate (principal)
CPT/HCPCS: 36415; 84153; G0103

== ENCOUNTER → 2025-07-13 | Outpatient (CLI) | payer MEDICARE, OTHER, SELFPAY ==
[2025-07-13 08:08] LABS: Mucous, Urine 0 SEEN /hpf (<or=2+); Red Blood Cells-Urine 0 SEEN /hpf (0-5); Squamous Epithelial Cells - UA 0 SEEN /hpf (0-5)
[2025-07-13 10:16] LABS: Color, Urine Yellow (Yellow); Glucose, Dipstick Normal (Normal); Ketone-Dipstick Negative (Negative); Leukocyte Esterase-Dipstick Negative /ul (Negative); Nitrite-Dipstick Negative (Negative); Occult Blood-Urine Negative /ul (Negative); Protein-Dipstick Negative (Negative); Specific Gravity, Urine 1.010 (1.002-1.030); Urine Bilirubin Dipstick Negative (Negative)
[2025-07-13 10:32] LABS: Hematocrit 43.5 % (40-54); Hemoglobin 14.7 g/dL (13.0-16.5); Immature Granulocytes Count 0.010 X10^3/uL (0.0-0.0); Mean Corp Hgb Conc 33.8 g/dL (32-36); Mean Corpuscular Volume 95.6 fL (80-94); Mean Platelet Vol. 11.5 fl (6.2-12.0); NRBC Flagged by Analyzer 0 % (0-5); Platelet Count 195 K/mm3 (150-450); RBC Distribution Width CV 12.6 % (11.6-14.6); RBC Distribution Width SD 44.3 fl (35.1-43.9); Red Blood Count 4.55 M/mm3 (4.6-6.2); White Blood Count 6.6 K/mm3 (4.4-11.0)
[2025-07-13 10:53] LABS: AST(SGOT) 23 U/L (<=37); Alanine Aminotransfer ALT/SGPT 39 U/L (<=46); Albumin, Serum 4.3 g/dL (3.4-4.8); Alkaline Phosphatase 58 U/L (40-129); Anion Gap 11 (5-15); BUN 16 mg/dL (4-19); BUN/Creat Ratio 15.9 RATIO (10-20); Calcium,Total 9.4 mg/dL (7.6-11.0); Carbon Dioxide 24.0 mmol/L (21.0-32.0); Chloride 106 mmol/L (98-108); Cholesterol 158 mg/dL (<=200); Globulin 2.4 g/dL (2.2-4.2); Glucose 108 mg/dL (70-99); Low Density Lipoprotein Calc. 68 mg/dL; Magnesium 2.3 mg/dL (1.5-2.2); Potassium 4.5 mmol/L (3.3-5.1); Triglycerides 54 mg/dL; Very Low Density Lipoprotein 11 mg/dL (5-40); cholesterol:hdl ratio screen 1.98
== END | disposition home or self-care (01) ==
LOC: MFPLAB 08:04
PROVIDERS: PCP Family Medicine; Visit Provider Family Medicine
DX: I10 Essential (primary) hypertension (principal); R73.02 Impaired glucose tolerance (oral)
CPT/HCPCS: 36415; 80053; 80061; 81001; 83036; 83735; 84443; 85025